=== PATIENT | male | born 1955 | race African-American/Black ===

== ENCOUNTER 2019-01-02 20:59 | Inpatient (IN) | payer MEDICARE ==
[2019-01-02] MEDS ORDERED: Ondansetron ODT 4 MG TAB PO PRN (23:23)
[2019-01-02] MEDS ORDERED: Ondansetron PF 4 MG/2 ML Vial IVP PRN (23:23)
[2019-01-02] MEDS ORDERED: Acetaminophen 325 MG TAB PO PRN (23:23)
[2019-01-03] MEDS: Sodium Chloride 0.9% 1,000 ML IV SCH ×3 (00:38→21:15)
[2019-01-03 00:43] VITALS: BMI 32.8
--- NOTE | 2019-01-03 00:48 | HP ---
PRIMARY CARE PHYSICIAN: Nicanor Garcia MD CODE STATUS: Full code. TIME OF EVALUATION: 2300. CHIEF COMPLAINT: Nausea, vomiting, and diarrhea. HISTORY OF PRESENT ILLNESS: This is a 63-year-old male patient with past medical history of hyperlipidemia, hypertension. He came to the hospital after having severe nausea, vomiting, and diarrhea. Symptoms have been present for the past 4 days and started insidiously and has been getting gradually worse associated with generalized weakness. No clear triggers and only improved with medical treatment given here. REVIEW OF SYSTEMS: CONSTITUTIONAL: The patient had no fever. The patient has no chills. The patient has generalized weakness. RESPIRATORY: No cough, sputum production, or shortness of breath. CARDIOVASCULAR: No chest pain, or palpitation. GASTROINTESTINAL: The patient had nausea, vomiting, diarrhea, abdominal pain. 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 GENITOURINARY: No burning on urination. EXTREMITIES: No leg swelling. All other systems were reviewed and negative except for the findings mentioned above. PAST MEDICAL HISTORY: As mentioned in the HPI. FAMILY HISTORY: Reviewed, noncontributory for current presentation. PAST SURGICAL HISTORY: No surgical history. PSYCHIATRIC HISTORY: No previous psychiatric history. SOCIAL HISTORY: The patient drinks socially rarely. No drug use. The patient smokes 1 pack per day. KNOWN ALLERGIES: No known drug allergies. REPORTED MEDICATIONS: 1. Lovastatin. 2. Amlodipine. PHYSICAL EXAMINATION: VITAL SIGNS: On presentation, blood pressure 109/58 with heart rate 97, respiratory rate was 18, temperature 97.2. Pain was 0/10, oxygen saturation 100% on room air. GENERAL APPEARANCE: The patient is alert, oriented, no acute distress. HEENT: Eyes, normal conjunctivae. Moist oral mucosa. Anicteric. No JVD. RESPIRATORY: Bilateral air entry. No rales. No wheezes. Symmetric expansion. CARDIOVASCULAR: Normal rate. Regular rhythm. No murmurs. No gallop. No edema. ABDOMEN: Soft, normal bowel sounds. MUSCULOSKELETAL: Baseline range of motion and strength. SKIN: Warm, intact. No pallor. No rash. No redness. Capillary refill seems to be intact. NEUROLOGIC: No evidence of any new focal weakness. Cranial nerves seems to be intact. PSYCHIATRIC: The patient is in good mood. No anxiety. Optimal judgment. LABORATORY DATA: Reviewed. White count was 4.7, hemoglobin 15.9, MCV 97, platelet count 311. Chemistry; potassium 4.5, sodium 137, chloride 99, anion gap 21, BUN 74, GFR 64, creatinine 5.64, GFR 12, glucose 101, hemoglobin A1c 4.7, total bilirubin 0.6. LFTs were negative. CK 321. Beta natriuretic peptide was negative. Serum total protein 7.6, albumin 3.6. Urine was done, was negative for infection. ASSESSMENT AND PLAN: The patient will be placed in the hospital with following medical problems: 1. Severe dehydration secondary to acute gastroenteritis that has been present for the past 4 days. We will hydrate aggressively. Blood pressure and heart rates normalized now. 2. Acute kidney injury. The patient has significant increase in BUN and creatinine with a GFR of 12. Creatinine has improved after initial aggressive hydration in the outpatient ER, initially was 6.9, now 5.6. normal. We will continue aggressive hydration. If not improving, we will consider Nephro evaluation. All seems to be prerenal. 3. Mildly elevated CK with no clear etiology. The patient received hydration. We will monitor. 4. Deep venous thrombosis prophylaxis. 5. Acute gastroenteritis of unclear etiology. We will send stool samples. No risk for C. diff on taking antibiotics. If positive, could be a community-acquired C diff. We will follow results. As of now, seems to be a viral infection since there is no evidence of underlying infection at this point. Job ID: [id number] MTDD
[2019-01-03 04:04] LABS: #Basophils 0.1 thou/uL (0.0-0.2); #Lymphocytes 1.7 thou/uL (1.20-3.40); #Monocytes 0.6 thou/uL (0.11-0.59); #Neutrophils 2.5 thou/uL (1.40-6.50); %Basophils 1.6 % (0.0-1.0); %Eosinophils 0.7 % (0.0-10.0); %Lymphocytes 34.7 % (21.0-51.0); %Monocytes 12.4 % (0.0-10.0); %Neutrophils 50.5 % (42.0-75.0); Mean Corpuscular HGB CONC 34.1 g/dL (32.0-36.0); Mean Corpuscular Hemoglobin 35.5 pg (27.0-31.0); Mean Platelet Volume 7.8 fL (7.4-10.4); Platelet Count 233 thou/uL (130-400); RBC Distribution Width 14.2 % (11.5-14.5); Red Blood Cell (RBC) Count 3.95 mill/uL (4.70-6.10); White Blood Cell (WBC) Count 4.9 thou/uL (4.8-10.8)
[2019-01-03 04:28] LABS: Anion Gap 18 mmol/L (10-20); BUN (Urea Nitrogen) 70 mg/dL (8.4-25.7); Calc. Creatinine Clearance 25 mL/min (70-130); Calcium 8.2 mg/dL (7.8-10.44); Carbon Dioxide 19 mmol/L (23-31); Chloride 101 mmol/L (98-107); Estimated GFR-MDRD 17; Glucose 94 mg/dL (80-115); Potassium 3.2 mmol/L (3.5-5.1); Sodium 135 mmol/L (136-145)
[2019-01-03] MEDS: Heparin 5,000 UNITS/ML VIAL SC SCH ×3 (08:15→21:12)
[2019-01-03] MEDS ORDERED: FLU VACC TS2019-20(65YR UP)/PF 180 MCG/0.5 ML SYRINGE IM ONE (09:00)
[2019-01-03] MEDS ORDERED: Enoxaparin Sodium 40 MG/0.4 ML SYRINGE SC SCH (09:00)
--- NOTE | 2019-01-03 12:53 | PDOC.EVN ---
Event Note - Event Note Event Note: Seen and examined. Discussed all laboratory data and improving renal function. Patient breathing well on room air. Patient's diarrhea secondary to Campylobacter infection, he does not recall eating any chicken products that specifically could have caused this. Patient is going to think about his diet over the past week and see if he can narrow down where he received the infection. Patient does state that he was at a wedding over the weekend and he had some brisket, however there is no other friends or family members who have been sick. Nephrology consult pending.
--- NOTE | 2019-01-03 18:22 | CON ---
DATE OF CONSULTATION: CONSULTING PHYSICIAN: Renny Funk MD REQUESTING PHYSICIAN: Josy Bui MD REASON FOR CONSULTATION: Acute kidney injury. IMPRESSION: 1. Acute kidney injury. This is likely prerenal in the context of poor p.o. intake with the increased gastrointestinal loss. However, I cannot completely rule out other potential etiologies that are not very clear at this point. 2. Gastroenteritis. Hopefully, the nausea vomiting has not seemed to do with uremia. 3. Mild hypokalemia in the context of gastrointestinal loss. 4. Metabolic acidosis related to reduced GFR as well as increased bicarb loss through the gastrointestinal tract. PLAN: 1. I do agree with gentle rehydration. 2. Renally dose all medications and avoid potentially nephrotoxic agents. 3. Replete potassium. 4. If no significant renal improvement over the next 24 hours, we will proceed with renal imaging, where of ultrasound as well as all other markers of advanced chronic kidney disease. 5. Further management to be dependent on the clinical course. HISTORY OF PRESENT ILLNESS: History is that of a 63-year-old gentleman who was transferred formal to us from [place] due to evidence of severe acute kidney injury. The patient presented to [facility] and was noted with a creatinine above 6 and for the past 4 days, the patient has been having nausea, vomiting, and diarrhea, has not had any appetite to eat. At this time of history taking, the patient is still struggling with appetite. As a result of these findings, decision has been taken to involve Renal in the management of the skin. The patient denies any frothy urine. Denies hematuria. Denies any new medications. No ingestion of any nonsteroidal anti-inflammatory drugs on chronic basis. PAST MEDICAL HISTORY: Significant for dyslipidemia and hypertension. MEDICATIONS: As documented on [employer]. SOCIAL HISTORY: Significant for tobacco use. No illicit drug use. FAMILY HISTORY: No family history of kidney disease. ALLERGIES: NO KNOWN DRUG ALLERGY. PHYSICAL EXAMINATION: GENERAL: The patient was found not to be in any obvious distress. VITAL SIGNS: Noted with the following vital signs; afebrile, temperature 97.9, pulse 81, respiratory rate of 18, O2 saturation of 94% to 98% with a blood pressure of 113/68 to 147/74. HEENT: Unremarkable. CARDIOVASCULAR SYSTEM: First and second heart sounds were heard. RESPIRATORY SYSTEM: Clear to auscultation. DIGESTIVE SYSTEM: Revealed a benign abdomen. Positive bowel sounds. EXTREMITIES: No peripheral edema. SKIN: No new gross rash. LYMPHATICS: No peripheral lymphadenopathy. SUMMARY: A 63-year-old gentleman, who presented here with nausea, vomiting, diarrhea and noted with the severe acute kidney injury. Thank you for this consultation. We will follow with you. Job ID: [id number]
[2019-01-04] MEDS: Sodium Chloride 0.9% 1,000 ML IV SCH ×3 (04:58→23:01)
[2019-01-04] MEDS: Amlodipine 10 MG TAB PO SCH (08:48)
[2019-01-04] MEDS: Heparin 5,000 UNITS/ML VIAL SC SCH ×3 (08:49→21:06)
[2019-01-04 09:41] LABS: Mean Corpuscular HGB CONC 34.2 g/dL (32.0-36.0); Mean Corpuscular Hemoglobin 35.7 pg (27.0-31.0); Mean Platelet Volume 7.8 fL (7.4-10.4); Platelet Count 244 thou/uL (130-400); Red Blood Cell (RBC) Count 3.64 mill/uL (4.70-6.10); White Blood Cell (WBC) Count 5.2 thou/uL (4.8-10.8)
[2019-01-04 09:45] LABS: #Basophils 0.1 thou/uL (0.0-0.2); #Eosinphils 0.1 thou/uL (0.0-0.7); #Lymphocytes 2.3 thou/uL (1.20-3.40); #Monocytes 0.6 thou/uL (0.11-0.59); #Neutrophils 2.1 thou/uL (1.40-6.50); %Basophils 1.3 % (0.0-1.0); %Eosinophils 1.9 % (0.0-10.0); %Lymphocytes 44.8 % (21.0-51.0); Band 2 % (5-11); Eosinophils 1 % (0-10); Lymphocytes 42 % (21-51); MDiff Complete? YES; Macrocytosis SLIGHT = 6-15 cells (100X) (0-5/hpf); Metamyelocyte 1 % (0-0); Monocytes 8 % (0-10); Neutrophil 43 % (42-75); Platelet Morphology Comment Appears Adequate; Polychromasia SLIGHT = 2-3 cells (100X) (0-2/hpf); Reactive Lymphocytes 3 % (0-10)
[2019-01-04 09:50] LABS: Anion Gap 14 mmol/L (10-20); BUN (Urea Nitrogen) 43 mg/dL (8.4-25.7); Calc. Creatinine Clearance 67 mL/min (70-130); Calcium 8.7 mg/dL (7.8-10.44); Carbon Dioxide 22 mmol/L (23-31); Chloride 107 mmol/L (98-107); Estimated GFR-MDRD 52; Glucose 100 mg/dL (80-115); Potassium 3.5 mmol/L (3.5-5.1); Sodium 139 mmol/L (136-145)
--- NOTE | 2019-01-04 18:18 | PRG ---
DATE OF SERVICE: 01/04/2019 SUBJECTIVE: The patient is seen and examined, seems to be doing much better, noted with the following vital signs. OBJECTIVE: VITAL SIGNS: Afebrile. Temperature 97.6, pulse 76, respiratory rate of 16, O2 saturations of 95%, blood pressure 129/75. HEENT: Unremarkable. CARDIOVASCULAR: First and second heart sounds were heard. RESPIRATORY: Clear to auscultation. DIGESTIVE SYSTEM: Benign abdomen. Positive bowel sounds. EXTREMITIES: No peripheral edema. SKIN: No new gross rash. LYMPHATICS: No peripheral lymphadenopathy. LABORATORY INVESTIGATIONS: Significant for creatinine that has gone down to 1.62, BUN of 43. IMPRESSION: Acute kidney injury in the context of increased GI loss, slight dehydration, seems to have responded very well to IV fluid resuscitation. PLAN: 1. Discontinue IV fluids. 2. Continue other renal supportive measures. 3. Renally dose all medications. 4. Outpatient Nephrology followup as per discharge recommend. Job ID: [id number]
--- NOTE | 2019-01-04 18:29 | PDOC.HOSPP ---
- Subjective Encounter Date: 01/04/19 Encounter Time: 08:20 Subjective: Pt seen for followup re: JOSE DAVID. Feels well, no complaints. - Objective Vital Signs & Weight: Vital Signs (12 hours) Temp Pulse Resp BP BP Pulse Ox 01/04/19 16:00 97.6 F 76 16 129/75 95 01/04/19 11:22 97.7 F 76 16 132/73 95 01/04/19 08:48 76 144/64 H 01/04/19 07:47 97.9 F 76 16 144/64 H 95 Weight Admit Weight 228 lb 8 oz Weight 228 lb 8 oz I&O: 01/03/19 01/04/19 01/05/19 06:59 06:59 06:59 Intake Total 1000 3580 Output Total 350 Balance 1000 3230 Result Diagrams: 01/04/19 09:08 01/04/19 09:08 Additional Labs: Labs and MARs reviewed by me Hospitalist ROS - Review of Systems Cardiovascular: denies: chest pain, palpitations, orthopnea, paroxysmal noc. dyspnea, edema, light headedness Gastrointestinal: denies: nausea, vomiting, abdominal pain, diarrhea, constipation, melena, hematochezia - Medication Medications: Active Medications Generic Name Dose Route Start Last Admin Trade Name Freq PRN Reason Stop Dose Admin Amlodipine Besylate 10 mg 01/04/19 09:00 01/04/19 08:48 Norvasc PO 10 mg DAILY OMKAR Administration Heparin Sodium (Porcine) 5,000 units 01/03/19 09:00 01/04/19 15:07 Heparin SC 5,000 units TID OMKAR Administration Sodium Chloride 1,000 mls @ 100 mls/hr 01/02/19 23:45 01/04/19 15:10 Normal Saline 0.9% IV 1,000 mls .Q10H OMKAR Administration Sodium Chloride 10 ml 01/03/19 09:00 01/04/19 08:54 Flush - Normal Saline IVF Not Given Q12HR OMKAR - Exam General - other findings: Obese Eye: anicteric sclera ENT: moist mucosa Neck: supple, no JVD Heart: RRR Respiratory: CTAB, no rales Gastrointestinal: soft, non-tender Extremities: no clubbing Neurological: no weakness Musculoskeletal: normal strength, no muscle wasting Psychiatric: normal affect, normal behavior Hosp A/P (1) JOSE DAVID (acute kidney injury) Code(s): N17.9 - ACUTE KIDNEY FAILURE, UNSPECIFIED Status: Acute (2) Campylobacter enteritis Code(s): A04.5 - CAMPYLOBACTER ENTERITIS Status: Acute (3) Dyslipidemia Code(s): E78.5 - HYPERLIPIDEMIA, UNSPECIFIED Status: Chronic - Plan out of bed/ambulate Creatinien improved to 1.62 today. Continue IV fluids. Pt denies diarrhea.
[2019-01-04 21:16] VITALS: TEMP 98
[2019-01-05 04:52] LABS: Anion Gap 11 mmol/L (10-20); BUN (Urea Nitrogen) 26 mg/dL (8.4-25.7); Calc. Creatinine Clearance 99 mL/min (70-130); Calcium 8.4 mg/dL (7.8-10.44); Carbon Dioxide 24 mmol/L (23-31); Chloride 107 mmol/L (98-107); Estimated GFR-MDRD 82; Glucose 92 mg/dL (80-115); Potassium 3.3 mmol/L (3.5-5.1); Sodium 139 mmol/L (136-145)
[2019-01-05 05:06] LABS: Eosinophils 3 % (0-10); Hemoglobin 11.9 g/dL (14.0-18.0); Hypochromia SLIGHT = 6-15 cells (100X) (0-5/hpf); Lymphocytes 59 % (21-51); MDiff Complete? YES; Mean Corpuscular HGB CONC 34.2 g/dL (32.0-36.0); Mean Corpuscular Hemoglobin 35.9 pg (27.0-31.0); Mean Platelet Volume 7.8 fL (7.4-10.4); Monocytes 9 % (0-10); Neutrophil 29 % (42-75); Platelet Count 240 thou/uL (130-400); Platelet Morphology Comment Appears Adequate; Red Blood Cell (RBC) Count 3.31 mill/uL (4.70-6.10); White Blood Cell (WBC) Count 5.9 thou/uL (4.8-10.8)
[2019-01-05] MEDS ORDERED: Potassium Chloride 20 MEQ TAB PO SCH (08:00)
[2019-01-05] MEDS: Amlodipine 10 MG TAB PO SCH (08:03)
[2019-01-05] MEDS: Heparin 5,000 UNITS/ML VIAL SC SCH (08:03)
[2019-01-05] MEDS: Sodium Chloride 0.9% 1,000 ML IV SCH (12:12)
[2019-01-05 12:25] VITALS: BP 117/69
[2019-01-05] MEDS ORDERED: Simvastatin 5 MG TAB PO SCH (17:00)
[2019-01-05] MEDS ORDERED: Lovastatin 20 MG TAB PO SCH (17:00)
--- NOTE | 2019-01-05 22:51 | DIS ---
DATE OF ADMISSION: 01/03/2019 DATE OF DISCHARGE: 01/05/2019 PRIMARY CARE PROVIDER: Nicanor Garcia MD DISCHARGE DIAGNOSES: 1. Acute kidney injury. 2. Dehydration. 3. Campylobacter enteritis. 4. Hyponatremia. 5. Hypokalemia. CONDITION OF PATIENT ON THE DAY OF DISCHARGE: Stable. I assessed Mr. Mckeon on the day of discharge. He denies any chest pain or shortness of breath. Vital signs are stable. S1 and S2 are heard, regular. Lungs are clear to auscultation bilaterally. DISCHARGE MEDICATIONS: 1. Amlodipine 10 mg daily. 2. Lovastatin 10 mg in the evening. HOSPITAL COURSE: Mr. Mckeon is a pleasant 63-year-old gentleman, who was admitted to [facility] on January 03, 2019, for acute kidney injury in the context of diarrhea. He also had severe dehydration. He was seen by Nephrology Service. He received intravenous fluids with improvement in his symptoms. His stool was positive for Campylobacter antigen, negative for E coli shiga toxins 1 and 2, and negative for Clostridium difficile. Preliminary stool cultures are growing gram-negative rods. He is advised to follow up with primary care provider for final stool culture report. No E coli 0157 was isolated at 24 hours. Acute kidney injury resolved. Diarrhea also resolved. He did not receive antibiotics for Campylobacter. I had a lengthy discussion with the patient as well as his over the telephone regarding sequelae of Campylobacter infections including symptoms to watch out for in case he develops Guillain-Lawrence syndrome. On the day of discharge, he has sodium 139, potassium 3.3, which is being replaced, creatinine 1.09, white count 5900, hemoglobin 11.9, and platelet count 240,000. CONSULTATIONS DURING THIS HOSPITALIZATION: Nephrology, [place] Alvaro Funk MD Many thanks for allowing me to participate in your patient's care. Please feel free to contact me with any questions or concerns. DISCHARGE DESTINATION: Home. TIME SPENT: Total amount of time spent coordinating this discharge: 32 minutes. Job ID: [id number]
--- NOTE | 2019-01-06 07:08 | PQF ---
DON COHEN DAVID [id number] CLINICAL DOCUMENTATION CLARIFICATION FORM: POST DISCHARGE Addendum to original discharge summary date: ____ Late entry note date: __ DATE:01-06-2019 ATTN: Krishna Springer Please exercise your independent, professional judgment in responding to the clarification form. Clinical indicators are provided on the bottom of this form for your review [ ]Sepsis due to campylobacter infection [ x ]Campylobacter infection [ ] Other diagnosis please specify [ ] Unable to determine In addition, please specify: Present on Admission (POA): [ ] Yes [ ] No [ ] Unable to determine For continuity of documentation, please document condition throughout progress notes and discharge summary. Thank You. CLINICAL INDICATORS ED NOTES 01/03 "patient presents for evaluation of vomiting,diarrhea and poor kidney function" HP 01/03 "patient has generalized weakness" HP 01/03 "severe dehdyration secondary to acute gastroenteritis" Event Note 01/03 "Patient's diarrhea secondary to Campylobacter infection" DS 01/05 "JOSE DAVID in the context of diarrhea" Consult 01/03-Acidosis Vital signs - BP 110/53 DS 01/05 "He did not receive antibiotics for Campylobacter" RISK FACTORS ED NOTES 01/03-63 years old male ED NOTES 01/03-HTN ED NOTES 01/03-Smoker HP 01/03-Dehydration Consult 01/03-Hypokalemia DS 01/05-Campylobacter enteritis TREATMENTS: HP 01/03-aggressive IV hydration HP 01/03-Nephro consult HP 01/03-Stool culture Consult 01/03-Avoid nephrotoxic agents Consult 01/03-Electrolyte replacement (This form is maintained as a part of the permanent medical record) 2014 [email or web address]. All Rights Reserved [email or web address] [not provided] MTDD
--- NOTE | 2019-01-06 18:34 | PQF ---
DON COHEN DAVID [id number] CLINICAL DOCUMENTATION CLARIFICATION FORM: POST DISCHARGE Addendum to original discharge summary date: ____ Late entry note date: __ DATE: 01-06-2019 ATTN:Krishna Springer Please exercise your independent, professional judgment in responding to the clarification form. Clinical indicators are provided on the bottom of this form for your review based on your clinical knowledge can you please clarify the reason for admission being treated for this patient? Please check appropriate box(s): [ ] JOSE DAVID [ x ] Campylobacter enteritis [ ] Other diagnosis please specify: [ ] Unable to determine In addition, please specify: Present on Admission (POA): [ x] Yes [ ] No [ ] Unable to determine For continuity of documentation, please document condition throughout progress notes and discharge summary. Thank You. CLINICAL INDICATORS ED NOTES 01/03 "patient presents for evaluation of vomiting,diarrhea and poor kidney function" HP 01/03 "patient has generalized weakness" HP 01/03 "severe dehdyration secondary to acute gastroenteritis" Event Note 01/03 "Patient's diarrhea secondary to Campylobacter infection" DS 01/05 "JOSE DAVID in the context of diarrhea" Consult 01/03-Acidosis DS 01/05 "He did not receive antibiotics for Campylobacter" RISK FACTORS ED NOTES 01/03-63 years old male ED NOTES 01/03-HTN ED NOTES 01/03-Smoker HP 01/03-Dehydration Consult 01/03-Hypokalemia Consult 01/03-Acidosi TREATMENTS: HP 01/03-aggressive IV hydration HP 01/03-Nephro consult HP 01/03-Stool culture Consult 01/03-Avoid nephrotoxic agents Consult 01/03-Electrolyte replacement (This form is maintained as a part of the permanent medical record) 2014 [email or web address]. All Rights Reserved [email or web address] [not provided] MTDD
== END 2019-01-05 13:05 | disposition home or self-care (01) | DRG 372 ==
LOC: ERS 20:59 → T4-B 01-03 00:27
PROVIDERS: ADMIT Hospitalist; ATTEND Hospitalist
DX: A04.5 Campylobacter enteritis (principal); N17.9 Acute kidney failure, unspecified; E87.2 Acidosis; E87.1 Hypo-osmolality and hyponatremia; Z23 Encounter for immunization; E78.5 Hyperlipidemia, unspecified; E78.00 Pure hypercholesterolemia, unspecified; I10 Essential (primary) hypertension; F17.210 Nicotine dependence, cigarettes, uncomplicated; E86.0 Dehydration; E87.6 Hypokalemia
CPT/HCPCS: 36415; 80048; 83630; 83735; 85025; 87045; 87046; 87077; 87186; 87324; 87427; 87449; 99284; J1644

== ENCOUNTER 2020-04-02 17:21 | Inpatient (IN) | payer MEDICARE ==
[~2020-04-02 17:21] MED LIST: Iopamidol 370 76% 100 ML VIAL ONE
[2020-04-02] MEDS ORDERED: Acetaminophen 325 MG TAB ONE (18:04)
[2020-04-02] MEDS ORDERED: cefTRIAXone\\ROCEPHIN 2 GM VIAL ONE (18:04)
[2020-04-02] MEDS ORDERED: Azithromycin 500 MG VIAL ONE (18:04)
[2020-04-02 18:08] LABS: Mean Corpuscular HGB CONC 33.8 g/dL (32.0-36.0); Mean Corpuscular Hemoglobin 37.5 pg (27.0-31.0); RBC Distribution Width 25.7 % (11.5-14.5); Red Blood Cell (RBC) Count 1.87 mill/uL (4.70-6.10); White Blood Cell (WBC) Count 4.8 thou/uL (4.8-10.8)
[2020-04-02 18:23] LABS: ALT (SGPT) 32 U/L (8-55); AST (SGOT) 149 U/L (5-34); Albumin 4.4 g/dL (3.4-4.8); Alkaline Phosphatase 62 U/L (40-110); Anion Gap 21 mmol/L (10-20); BUN (Urea Nitrogen) 40 mg/dL (8.4-25.7); Bilirubin, Total 1.1 mg/dL (0.2-1.2); Calc. Creatinine Clearance 0 mL/min (70-130); Calcium 8.6 mg/dL (7.8-10.44); Carbon Dioxide 19 mmol/L (23-31); Chloride 107 mmol/L (98-107); Globulin 3.1 g/dL (2.4-3.5); Glucose 110 mg/dL (80-115); Protein, Total 7.5 g/dL (5.8-8.1); Sodium 143 mmol/L (136-145)
[2020-04-02 18:25] LABS: Anisocytosis MODERATE=16-30 cells (100X) (0-5/hpf); Band 13 % (5-11); Basophilic Stippling SLIGHT = 1-2 cells (100X) (None Seen); Lymphocytes 26 % (21-51); MDiff Complete? YES; Macrocytosis SLIGHT = 6-15 cells (100X) (0-5/hpf); Mean Platelet Volume 7.2 fL (7.4-10.4); Monocytes 2 % (0-10); Neutrophil 59 % (42-75); Nucleated RBC 6 % (0); Ovalocytes SLIGHT = 2-5 cells (100X) (0-1/hpf); Platelet Count 59 thou/uL (130-400); Platelet Morphology Comment Appears Decreased; Polychromasia MARKED = >4 cells (100X) (0-2/hpf); Reflex for Review?? NO; Schistocytes MODERATE= 6-15 cells (100X) (0-1/hpf); Target Cells SLIGHT = 2-5 cells (100X) (0-1/hpf); Tear Drops SLIGHT = 2-5 cells (100X) (0-1/hpf)
[2020-04-02 18:29] LABS: Bacteria/HPF None Seen HPF (None Seen); Bilirubin Negative (Negative); Blood, Urine 1+ (Negative); Clarity Turbid (Clear); Glucose, Urine (Dipstick) Normal (Negative); Ketone, Urine Trace mg/dL (Negative); Leukocyte Negative Leu/uL (Negative); Nitrite Negative (Negative); Protein, Urine (Dipstick) 30 mg/dL (Neg-Trace); RBC/HPF 0-3 HPF (0-3); Squamous Epithelial 0-3 HPF (0-3); WBC/HPF 0-3 HPF (0-3)
[2020-04-02 19:42] LABS: SARS-CoV-2 NAA Rapid Test DETECTED (NotDetected)
[2020-04-02 19:54] LABS: Troponin I 27.195 ng/mL (< 0.028)
[2020-04-02] MEDS ORDERED: Aspirin Chewable 81 MG TAB ONE (20:30)
[2020-04-02] MEDS ORDERED: Enoxaparin Sodium 30 MG/0.3 ML SYRINGE ONE (20:30)
[2020-04-02 21:23] LABS: Lactic Acid 1.2 mmol/L (0.5-2.2)
[2020-04-02] MEDS ORDERED: Norepinephrine 8 MG/0.9% NS 250 ML ONE (22:24)
[2020-04-02 22:53] LABS: Hemoglobin 5.1 g/dL (14.0-18.0)
[2020-04-02 23:14] LABS: Anisocytosis MODERATE=16-30 cells (100X) (0-5/hpf); Band 8 % (5-11); Lymphocytes 52 % (21-51); MDiff Complete? YES; Mean Corpuscular HGB CONC 32.7 g/dL (32.0-36.0); Mean Corpuscular Hemoglobin 36.3 pg (27.0-31.0); Mean Platelet Volume 7.4 fL (7.4-10.4); Monocytes 1 % (0-10); Neutrophil 39 % (42-75); Platelet Count 43 thou/uL (130-400); Platelet Morphology Comment Appears Decreased; RBC Distribution Width 26.2 % (11.5-14.5); Red Blood Cell (RBC) Count 1.41 mill/uL (4.70-6.10); Schistocytes SLIGHT = 2-5 cells (100X) (0-1/hpf); Tear Drops SLIGHT = 2-5 cells (100X) (0-1/hpf); White Blood Cell (WBC) Count 4.1 thou/uL (4.8-10.8)
[2020-04-02 23:29] LABS: CKMB 68.2 ng/mL (0-6.6)
[2020-04-02] MEDS ORDERED: Dexamethasone 4 mg/ml Vial SLOW IVP SCH ×2 (23:30)
[2020-04-03] MEDS: Cefepime 2 GM in Sodium Chloride 0.9% 100 ML IVPB SCH ×3 (00:50→19:10)
[2020-04-03] MEDS ORDERED: Cefepime 2 GM VIAL ONE ×2 (00:52→06:31)
[2020-04-03 01:38] LABS: Critical Call Chem Troponin I RESULT DECREASING
[2020-04-03] MEDS ORDERED: Dexamethasone 4 mg/ml Vial ONE (01:49)
[2020-04-03 05:05] LABS: Anion Gap 19 mmol/L (10-20); BUN (Urea Nitrogen) 38 mg/dL (8.4-25.7); Calc. Creatinine Clearance 0 mL/min (70-130); Calcium 7.8 mg/dL (7.8-10.44); Carbon Dioxide 14 mmol/L (23-31); Chloride 113 mmol/L (98-107); Glucose 101 mg/dL (80-115); Sodium 142 mmol/L (136-145)
[2020-04-03 05:56] LABS: Hemoglobin 7.5 g/dL (14.0-18.0); Mean Corpuscular HGB CONC 33.5 g/dL (32.0-36.0); Mean Corpuscular Hemoglobin 36.6 pg (27.0-31.0); Mean Platelet Volume 6.9 fL (7.4-10.4); Platelet Count 61 thou/uL (130-400); RBC Distribution Width 25.3 % (11.5-14.5); Red Blood Cell (RBC) Count 2.04 mill/uL (4.70-6.10); White Blood Cell (WBC) Count 6.1 thou/uL (4.8-10.8)
[2020-04-03 06:00] LABS: Anisocytosis MODERATE=16-30 cells (100X) (0-5/hpf); Band 11 % (5-11); Lymphocytes 21 % (21-51); MDiff Complete? YES; Monocytes 1 % (0-10); Myelocyte 2 % (0-0); Neutrophil 65 % (42-75); Platelet Morphology Comment Appears Decreased; Schistocytes SLIGHT = 2-5 cells (100X) (0-1/hpf); Tear Drops SLIGHT = 2-5 cells (100X) (0-1/hpf)
[2020-04-03] MEDS: Sodium Chloride 0.9% 1,000 ML IV SCH ×3 (07:10→19:09)
[2020-04-03] MEDS: Cholecalciferol (Vitamin D3) 400 UNITS TAB PO SCH (09:00)
[2020-04-03] MEDS ORDERED: Dexamethasone 4 mg/ml Vial SLOW IVP SCH (09:00)
[2020-04-03] MEDS ORDERED: Vancomycin 1 GM in Premix Bag 1 BAG IVPB SCH (09:00)
[2020-04-03] MEDS: Ascorbic Acid 500 mg Chewable Tablet PO SCH (12:00)
[2020-04-03 14:39] LABS: Fibrinogen 368 mg/dL (253-463); INR-International Normal Ratio 1.1; Prothrombin Time 14.6 sec (12.0-14.7)
[2020-04-03 14:40] LABS: PTT 37.6 sec (22.9-36.1)
[2020-04-03 14:54] LABS: D-Dimer Test 9.04 *mcg/mL (0.27-0.43)
[2020-04-03 15:09] LABS: FSP-Qualitative ABNORMAL (Normal); FSP-Semiquantitative >=40 & <80 mcg/mL (Less than 5)
[2020-04-03 15:10] LABS: Platelet Count 61 thou/uL (130-400)
[2020-04-03] MEDS ORDERED: REMDESIVIR (EUA) 200 MG in Sodium Chloride 0.9% 250 ML 210 ML IV SCH (15:15)
[2020-04-03] MEDS ORDERED: cefTRIAXone\\ROCEPHIN 2 GM VIAL ONE (16:13)
[2020-04-03] MEDS: cefTRIAXone\\ROCEPHIN 2 GM in Sodium Chloride 0.9% 100 ML IVPB SCH (16:15)
[2020-04-03] MEDS: Zinc Sulfate 220 MG CAP PO SCH (16:17)
[2020-04-03] MEDS ORDERED: Azithromycin 500 MG in Sodium Chloride 0.9% 250 ML 250 ML IVPB SCH (18:00)
[2020-04-03] MEDS ORDERED: Fentanyl 100 MCG/2 ML VIAL ONE (20:11)
[2020-04-03] MEDS ORDERED: Rocuronium Bromide 10 MG/ML (10ML VIAL) ONE (20:11)
[2020-04-03] MEDS ORDERED: Propofol 1,000 MG/100 ML VIAL IV ONE ×2 (20:16→23:02)
[2020-04-03 21:22] LABS: Actual Bicarbonate (HCO3a) 14.7 mEq/L (22-28); Analyzer IN Cardio ER; Base Excess (BEa) -11.2 mEq/L (-2.0 to +3.0); CO2 Tension 32.7 mmHg (35.0-45.0); Calcium, Ionized (arterial) 1.12 mmol/L (1.12-1.30); Carboxyhemoglobin (COHb) 0.5 gm% (0.0-3.0); Hemoglobin (Hb) 6.8 g/dL (14.0-18.0); O2 Tension (PaO2), arterial 385.1 mmHg (> 80.0); Potassium - ABG Lab 4.25 mmol/L (3.70-5.30); pH, Arterial 7.27 (7.35-7.45)
[2020-04-03 21:29] LABS: ALV-art Gradient 287.025 mmHg (0-20); Puncture Site RBA
[2020-04-03] MEDS ORDERED: fentaNYL Citrate/PF 2,000 MCG in Sodium Chloride 0.9% 60 ML IV SCH (22:15)
[2020-04-04] MEDS ORDERED: Propofol 1,000 MG/100 ML VIAL IV ONE ×4 (01:06→15:53)
[2020-04-04] MEDS: Sodium Chloride 0.9% 1,000 ML IV SCH ×3 (01:43→19:40)
[2020-04-04] MEDS ORDERED: Norepinephrine 4 MG/4 ML VIAL ONE (04:27)
[2020-04-04 07:13] LABS: Actual Bicarbonate (HCO3a) 13.6 mEq/L (22-28); Analyzer IN Cardio ER; Base Excess (BEa) -10.4 mEq/L (-2.0 to +3.0); Calcium, Ionized (arterial) 1.06 mmol/L (1.12-1.30); Carboxyhemoglobin (COHb) 0.1 gm% (0.0-3.0); Hemoglobin (Hb) 7.2 g/dL (14.0-18.0); O2 Tension (PaO2), arterial 216.2 mmHg (> 80.0); Potassium - ABG Lab 4.36 mmol/L (3.70-5.30); pH, Arterial 7.38 (7.35-7.45)
[2020-04-04 07:20] LABS: CO2 Tension 23.6 mmHg (35.0-45.0)
[2020-04-04 07:21] LABS: Puncture Site RRA
[2020-04-04 07:48] LABS: Mean Corpuscular HGB CONC 32.9 g/dL (32.0-36.0); Mean Corpuscular Hemoglobin 36.2 pg (27.0-31.0); Mean Platelet Volume 7.3 fL (7.4-10.4); Platelet Count 57 thou/uL (130-400); RBC Distribution Width 26.3 % (11.5-14.5); Red Blood Cell (RBC) Count 1.92 mill/uL (4.70-6.10); White Blood Cell (WBC) Count 7.2 thou/uL (4.8-10.8)
[2020-04-04 08:16] LABS: ALT (SGPT) 32 U/L (8-55); AST (SGOT) 126 U/L (5-34); Albumin 3.6 g/dL (3.4-4.8); Alkaline Phosphatase 47 U/L (40-110); Anion Gap 19 mmol/L (10-20); BUN (Urea Nitrogen) 44 mg/dL (8.4-25.7); Bilirubin, Total 0.8 mg/dL (0.2-1.2); CRP (Inflammatory) 13.13 mg/dL (= or < 0.5); Calc. Creatinine Clearance 62 mL/min (70-130); Calcium 7.7 mg/dL (7.8-10.44); Carbon Dioxide 14 mmol/L (23-31); Chloride 116 mmol/L (98-107); Globulin 2.9 g/dL (2.4-3.5); Glucose 169 mg/dL (80-115); Potassium 4.8 mmol/L (3.5-5.1); Protein, Total 6.5 g/dL (5.8-8.1); Sodium 144 mmol/L (136-145)
[2020-04-04 08:22] LABS: Anisocytosis MARKED = >30 cells (100X) (0-5/hpf); Band 7 % (5-11); Lymphocytes 20 % (21-51); MDiff Complete? YES; Monocytes 4 % (0-10); Myelocyte 1 % (0-0); Neutrophil 68 % (42-75); Nucleated RBC 10 % (0); Platelet Morphology Comment Appears Decreased; Polychromasia MODERATE = 3-4 cells (100X) (0-2/hpf); Schistocytes MODERATE= 6-15 cells (100X) (0-1/hpf); Tear Drops SLIGHT = 2-5 cells (100X) (0-1/hpf)
[2020-04-04] MEDS: Cyanocobalamin 1000 MCG/ML VIAL IM SCH (09:00)
[2020-04-04] MEDS: Cholecalciferol (Vitamin D3) 400 UNITS TAB PO SCH (15:14)
[2020-04-04] MEDS: Ascorbic Acid 500 mg Chewable Tablet PO SCH (15:15)
[2020-04-04] MEDS: Zinc Sulfate 220 MG CAP PO SCH (15:15)
[2020-04-04] MEDS ORDERED: cefTRIAXone\\ROCEPHIN 2 GM VIAL ONE (15:18)
[2020-04-04] MEDS ORDERED: Dexamethasone 10 MG/ML VIAL ONE (15:18)
[2020-04-04] MEDS: cefTRIAXone\\ROCEPHIN 2 GM in Sodium Chloride 0.9% 100 ML IVPB SCH (15:35)
[2020-04-04] MEDS ORDERED: REMDESIVIR (EUA) 100 MG in Sodium Chloride 0.9% 250 ML 230 ML IV SCH (16:00)
[2020-04-04] MEDS: Norepinephrine 8 MG in Dextrose 5% in Water 242 ML IVPB PRN (19:56)
[2020-04-04] MEDS ORDERED: Morphine 2 MG/ML VIAL SLOW IVP PRN (22:00)
[2020-04-04] MEDS ORDERED: DISCONTINUE PREVIOUS NARCOTIC PAIN MEDICATIONS AND BENZODIAZEPINES FS SCH (22:00)
[2020-04-04] MEDS ORDERED: Fentanyl BOLUS 250 ML IVPB PRN (22:00)
[2020-04-04] MEDS ORDERED: Propofol BOLUS 1,000 MG/100 ML VIAL IV PRN (22:00)
[2020-04-04] MEDS: REMDESIVIR (EUA) 100 MG in Sodium Chloride 0.9% 250 ML 230 ML IV SCH (22:02)
[2020-04-04] MEDS: Propofol 1,000 MG/100 ML VIAL IV PRN (23:45)
[2020-04-05] MEDS: Norepinephrine 8 MG in Dextrose 5% in Water 242 ML IVPB PRN ×3 (00:12→20:57)
[2020-04-05] MEDS: fentaNYL Citrate/PF 2,000 MCG in Sodium Chloride 0.9% 60 ML IV SCH ×2 (00:47→17:03)
[2020-04-05] MEDS: Sodium Chloride 0.9% 1,000 ML IV SCH ×3 (04:27→19:16)
[2020-04-05 05:04] LABS: ALT (SGPT) 30 U/L (8-55); AST (SGOT) 109 U/L (5-34); Albumin 3.2 g/dL (3.4-4.8); Alkaline Phosphatase 45 U/L (40-110); Anion Gap 17 mmol/L (10-20); BUN (Urea Nitrogen) 47 mg/dL (8.4-25.7); Bilirubin, Total 0.7 mg/dL (0.2-1.2); CRP (Inflammatory) 20.66 mg/dL (= or < 0.5); Calc. Creatinine Clearance 59 mL/min (70-130); Calcium 7.7 mg/dL (7.8-10.44); Carbon Dioxide 16 mmol/L (23-31); Chloride 116 mmol/L (98-107); Globulin 2.6 g/dL (2.4-3.5); Glucose 180 mg/dL (80-115); Potassium 5.4 mmol/L (3.5-5.1); Protein, Total 5.8 g/dL (5.8-8.1); Sodium 144 mmol/L (136-145)
[2020-04-05 06:09] LABS: Anisocytosis MODERATE=16-30 cells (100X) (0-5/hpf); Band 12 % (5-11); Hemoglobin 6.3 g/dL (14.0-18.0); Lymphocytes 13 % (21-51); MDiff Complete? YES; Macrocytosis SLIGHT = 6-15 cells (100X) (0-5/hpf); Mean Corpuscular HGB CONC 33.8 g/dL (32.0-36.0); Mean Corpuscular Hemoglobin 37.3 pg (27.0-31.0); Mean Platelet Volume 7.3 fL (7.4-10.4); Monocytes 4 % (0-10); Neutrophil 71 % (42-75); Nucleated RBC 3 % (0); Platelet Count 39 thou/uL (130-400); Platelet Morphology Comment Appears Decreased; Polychromasia SLIGHT = 2-3 cells (100X) (0-2/hpf); RBC Distribution Width 25.8 % (11.5-14.5); White Blood Cell (WBC) Count 4.1 thou/uL (4.8-10.8)
[2020-04-05] MEDS: Cholecalciferol (Vitamin D3) 400 UNITS TAB PO SCH (09:03)
[2020-04-05] MEDS: Cyanocobalamin 1000 MCG/ML VIAL IM SCH (09:03)
[2020-04-05] MEDS: Ascorbic Acid 500 mg Chewable Tablet PO SCH (09:03)
[2020-04-05] MEDS: Zinc Sulfate 220 MG CAP PO SCH (09:03)
[2020-04-05] MEDS: Propofol 1,000 MG/100 ML VIAL IV PRN ×2 (13:48→19:13)
[2020-04-05] MEDS: cefTRIAXone\\ROCEPHIN 2 GM in Sodium Chloride 0.9% 100 ML IVPB SCH (14:52)
[2020-04-05 19:41] LABS: Hemoglobin 8.9 g/dL (14.0-18.0); Mean Corpuscular HGB CONC 33.3 g/dL (32.0-36.0); Mean Corpuscular Hemoglobin 34.9 pg (27.0-31.0); Mean Platelet Volume 12.5 fL (7.4-10.4); Platelet Count 35 thou/uL (130-400); RBC Distribution Width 23.2 % (11.5-14.5); Red Blood Cell (RBC) Count 2.56 mill/uL (4.70-6.10); White Blood Cell (WBC) Count 4.6 thou/uL (4.8-10.8)
[2020-04-05] MEDS: Lorazepam 2 MG/ML VIAL SLOW IVP PRN (20:55)
[2020-04-05] MEDS: REMDESIVIR (EUA) 100 MG in Sodium Chloride 0.9% 250 ML 230 ML IV SCH (20:56)
[2020-04-06] MEDS: Propofol 1,000 MG/100 ML VIAL IV PRN ×5 (01:37→22:45)
[2020-04-06] MEDS: Sodium Chloride 0.9% 1,000 ML IV SCH ×4 (03:00→14:06)
[2020-04-06 05:24] LABS: Platelet Count 28 thou/uL (130-400)
[2020-04-06] MEDS: Norepinephrine 8 MG in Dextrose 5% in Water 242 ML IVPB PRN ×2 (05:33→17:05)
[2020-04-06 05:42] LABS: ALT (SGPT) 25 U/L (8-55); AST (SGOT) 79 U/L (5-34); Albumin 2.9 g/dL (3.4-4.8); Alkaline Phosphatase 48 U/L (40-110); Anion Gap 15 mmol/L (10-20); BUN (Urea Nitrogen) 41 mg/dL (8.4-25.7); Bilirubin, Total 0.7 mg/dL (0.2-1.2); Calc. Creatinine Clearance 84 mL/min (70-130); Calcium 7.8 mg/dL (7.8-10.44); Carbon Dioxide 15 mmol/L (23-31); Chloride 119 mmol/L (98-107); Globulin 2.6 g/dL (2.4-3.5); Glucose 113 mg/dL (80-115); Potassium 4.9 mmol/L (3.5-5.1); Protein, Total 5.5 g/dL (5.8-8.1); Sodium 144 mmol/L (136-145)
[2020-04-06 05:53] LABS: Anisocytosis MODERATE=16-30 cells (100X) (0-5/hpf); Band 4 % (5-11); Hemoglobin 8.2 g/dL (14.0-18.0); Lymphocytes 22 % (21-51); MDiff Complete? YES; Macrocytosis SLIGHT = 6-15 cells (100X) (0-5/hpf); Mean Corpuscular Hemoglobin 35.7 pg (27.0-31.0); Mean Platelet Volume 13.2 fL (7.4-10.4); Monocytes 11 % (0-10); Neutrophil 63 % (42-75); Nucleated RBC 2 % (0); Platelet Morphology Comment Appears Decreased; RBC Distribution Width 22.8 % (11.5-14.5); Tear Drops SLIGHT = 2-5 cells (100X) (0-1/hpf); White Blood Cell (WBC) Count 3.5 thou/uL (4.8-10.8)
[2020-04-06] MEDS: Lorazepam 2 MG/ML VIAL SLOW IVP PRN ×2 (07:38→23:06)
[2020-04-06] MEDS: Zinc Sulfate 220 MG CAP PO SCH (09:54)
[2020-04-06] MEDS: Cholecalciferol (Vitamin D3) 400 UNITS TAB PO SCH (09:54)
[2020-04-06] MEDS: Cyanocobalamin 1000 MCG/ML VIAL IM SCH (09:54)
[2020-04-06] MEDS: Ascorbic Acid 500 mg Chewable Tablet PO SCH (10:48)
[2020-04-06] MEDS: fentaNYL Citrate/PF 2,000 MCG in Sodium Chloride 0.9% 60 ML IV SCH (11:23)
[2020-04-06] MEDS ORDERED: Furosemide 20 MG/2 ML VIAL SLOW IVP SCH (12:15)
[2020-04-06] MEDS: cefTRIAXone\\ROCEPHIN 2 GM in Sodium Chloride 0.9% 100 ML IVPB SCH (16:23)
[2020-04-06] MEDS: Simvastatin 5 MG TAB PO SCH (20:25)
[2020-04-06] MEDS: REMDESIVIR (EUA) 100 MG in Sodium Chloride 0.9% 250 ML 230 ML IV SCH (20:41)
[2020-04-07] MEDS: fentaNYL Citrate/PF 2,000 MCG in Sodium Chloride 0.9% 60 ML IV SCH ×2 (01:59→13:58)
[2020-04-07] MEDS: Sodium Chloride 0.9% 1,000 ML IV SCH ×2 (03:50→17:26)
[2020-04-07] MEDS: Propofol 1,000 MG/100 ML VIAL IV PRN ×3 (06:16→17:31)
[2020-04-07] MEDS: Fondaparinux Sodium 2.5 MG/0.5 ML SYRINGE SC SCH (06:18)
[2020-04-07] MEDS: Furosemide 20 MG/2 ML VIAL SLOW IVP SCH (09:25)
[2020-04-07] MEDS: Pantoprazole 40 MG GRANULES PACKET PER TUBE SCH (09:28)
[2020-04-07] MEDS: Ascorbic Acid 500 mg Chewable Tablet PO SCH (09:28)
[2020-04-07] MEDS: Cholecalciferol (Vitamin D3) 400 UNITS TAB PO SCH (09:28)
[2020-04-07] MEDS: Zinc Sulfate 220 MG CAP PO SCH (09:28)
[2020-04-07] MEDS: Cyanocobalamin 1000 MCG/ML VIAL IM SCH (09:30)
[2020-04-07 09:59] LABS: ALT (SGPT) 36 U/L (8-55); AST (SGOT) 97 U/L (5-34); Albumin 2.9 g/dL (3.4-4.8); Alkaline Phosphatase 66 U/L (40-110); Anion Gap 18 mmol/L (10-20); BUN (Urea Nitrogen) 35 mg/dL (8.4-25.7); Bilirubin, Total 0.7 mg/dL (0.2-1.2); CRP (Inflammatory) 10.61 mg/dL (= or < 0.5); Calc. Creatinine Clearance 112 mL/min (70-130); Calcium 7.8 mg/dL (7.8-10.44); Carbon Dioxide 13 mmol/L (23-31); Chloride 119 mmol/L (98-107); Globulin 2.8 g/dL (2.4-3.5); Glucose 99 mg/dL (80-115); Potassium 4.7 mmol/L (3.5-5.1); Protein, Total 5.7 g/dL (5.8-8.1); Sodium 145 mmol/L (136-145)
[2020-04-07 11:21] LABS: Hemoglobin 9.2 g/dL (14.0-18.0); Mean Corpuscular HGB CONC 34.8 g/dL (32.0-36.0); Mean Corpuscular Hemoglobin 35.9 pg (27.0-31.0); Mean Platelet Volume 16.7 fL (7.4-10.4); Platelet Count 16 thou/uL (130-400); RBC Distribution Width 23.1 % (11.5-14.5); Red Blood Cell (RBC) Count 2.57 mill/uL (4.70-6.10); White Blood Cell (WBC) Count 3.9 thou/uL (4.8-10.8)
[2020-04-07 11:45] LABS: Anisocytosis MARKED = >30 cells (100X) (0-5/hpf); Band 6 % (5-11); Bite Cells SLIGHT = 2-5 cells (100X) (0-1/hpf); Lymphocytes 34 % (21-51); MDiff Complete? YES; Metamyelocyte 2 % (0-0); Monocytes 6 % (0-10); Neutrophil 50 % (42-75); Nucleated RBC 11 % (0); Platelet Morphology Comment Appears Decreased; Polychromasia SLIGHT = 2-3 cells (100X) (0-2/hpf); Reactive Lymphocytes 2 % (0-10); Schistocytes SLIGHT = 2-5 cells (100X) (0-1/hpf); Tear Drops SLIGHT = 2-5 cells (100X) (0-1/hpf)
[2020-04-07] MEDS: Norepinephrine 8 MG in Dextrose 5% in Water 242 ML IVPB PRN (12:15)
[2020-04-07] MEDS: cefTRIAXone\\ROCEPHIN 2 GM in Sodium Chloride 0.9% 100 ML IVPB SCH (17:24)
[2020-04-07] MEDS: REMDESIVIR (EUA) 100 MG in Sodium Chloride 0.9% 250 ML 230 ML IV SCH (20:30)
[2020-04-07] MEDS: Simvastatin 5 MG TAB PO SCH (20:30)
[2020-04-07] MEDS: Lorazepam 2 MG/ML VIAL SLOW IVP PRN (22:07)
[2020-04-08] MEDS: Propofol 1,000 MG/100 ML VIAL IV PRN ×6 (00:16→23:53)
[2020-04-08] MEDS: Lorazepam 2 MG/ML VIAL SLOW IVP PRN (00:16)
[2020-04-08] MEDS: Sodium Chloride 0.9% 1,000 ML IV SCH ×2 (01:45→18:19)
[2020-04-08] MEDS: fentaNYL Citrate/PF 2,000 MCG in Sodium Chloride 0.9% 60 ML IV SCH ×2 (01:45→14:36)
[2020-04-08 04:58] LABS: Mean Platelet Volume 14.2 fL (7.4-10.4); Platelet Count 22 thou/uL (130-400)
[2020-04-08 05:14] LABS: ALT (SGPT) 68 U/L (8-55); AST (SGOT) 123 U/L (5-34); Albumin 2.5 g/dL (3.4-4.8); Alkaline Phosphatase 71 U/L (40-110); Anion Gap 14 mmol/L (10-20); BUN (Urea Nitrogen) 32 mg/dL (8.4-25.7); Bilirubin, Total 0.7 mg/dL (0.2-1.2); CRP (Inflammatory) 6.17 mg/dL (= or < 0.5); Calc. Creatinine Clearance 123 mL/min (70-130); Calcium 7.6 mg/dL (7.8-10.44); Carbon Dioxide 18 mmol/L (23-31); Chloride 118 mmol/L (98-107); Globulin 2.5 g/dL (2.4-3.5); Glucose 105 mg/dL (80-115); Potassium 3.8 mmol/L (3.5-5.1); Sodium 146 mmol/L (136-145)
[2020-04-08 05:23] LABS: Hemoglobin 8.3 g/dL (14.0-18.0); Hypochromia MODERATE=16-30 cells (100X) (0-5/hpf); MDiff Complete? YES; Mean Corpuscular HGB CONC 34.8 g/dL (32.0-36.0); Platelet Morphology Comment Appears Decreased; Red Blood Cell (RBC) Count 2.31 mill/uL (4.70-6.10); White Blood Cell (WBC) Count 3.7 thou/uL (4.8-10.8)
[2020-04-08] MEDS: Fondaparinux Sodium 2.5 MG/0.5 ML SYRINGE SC SCH (06:20)
[2020-04-08] MEDS: Ascorbic Acid 500 mg Chewable Tablet PO SCH (09:02)
[2020-04-08] MEDS: Furosemide 20 MG/2 ML VIAL SLOW IVP SCH (09:02)
[2020-04-08] MEDS: Zinc Sulfate 220 MG CAP PO SCH (09:02)
[2020-04-08] MEDS: Cyanocobalamin 1000 MCG/ML VIAL IM SCH (09:02)
[2020-04-08] MEDS: Cholecalciferol (Vitamin D3) 400 UNITS TAB PO SCH (09:02)
[2020-04-08] MEDS: Pantoprazole 40 MG GRANULES PACKET PER TUBE SCH (09:02)
[2020-04-08] MEDS ORDERED: Docusate Sodium 100 MG/10 ML UDCUP PO PRN (09:47)
[2020-04-08] MEDS: Albumin 25% 25 GM/100 ML BOT IVPB SCH ×3 (10:46→22:24)
[2020-04-08] MEDS: Metoclopramide 10 MG/10 ML UDCUP PO SCH ×3 (10:46→19:28)
[2020-04-08] MEDS: cefTRIAXone\\ROCEPHIN 2 GM in Sodium Chloride 0.9% 100 ML IVPB SCH (15:45)
[2020-04-08] MEDS: Simvastatin 5 MG TAB PO SCH (19:28)
[2020-04-09] MEDS: fentaNYL Citrate/PF 2,000 MCG in Sodium Chloride 0.9% 60 ML IV SCH ×2 (03:31→13:58)
[2020-04-09] MEDS: Propofol 1,000 MG/100 ML VIAL IV PRN ×4 (03:32→21:40)
[2020-04-09] MEDS: Albumin 25% 25 GM/100 ML BOT IVPB SCH (03:32)
[2020-04-09 04:56] LABS: Anion Gap 14 mmol/L (10-20); BUN (Urea Nitrogen) 36 mg/dL (8.4-25.7); Calc. Creatinine Clearance 119 mL/min (70-130); Calcium 8.1 mg/dL (7.8-10.44); Carbon Dioxide 19 mmol/L (23-31); Chloride 118 mmol/L (98-107); Glucose 101 mg/dL (80-115); Potassium 3.7 mmol/L (3.5-5.1); Sodium 147 mmol/L (136-145)
[2020-04-09 04:59] LABS: Eosinophils 1 % (0-10); Hypochromia SLIGHT = 6-15 cells (100X) (0-5/hpf); Lymphocytes 42 % (21-51); MDiff Complete? YES; Mean Corpuscular HGB CONC 34.6 g/dL (32.0-36.0); Mean Corpuscular Hemoglobin 36.8 pg (27.0-31.0); Mean Platelet Volume 15.7 fL (7.4-10.4); Metamyelocyte 3 % (0-0); Monocytes 10 % (0-10); Myelocyte 6 % (0-0); Neutrophil 37 % (42-75); Nucleated RBC 15 % (0); Platelet Count 37 thou/uL (130-400); Platelet Morphology Comment Appears Decreased; RBC Distribution Width 24.9 % (11.5-14.5); RBC Morphology Normal; Reactive Lymphocytes 1 % (0-10); Red Blood Cell (RBC) Count 2.43 mill/uL (4.70-6.10); White Blood Cell (WBC) Count 6.7 thou/uL (4.8-10.8)
[2020-04-09] MEDS: Fondaparinux Sodium 2.5 MG/0.5 ML SYRINGE SC SCH (05:35)
[2020-04-09] MEDS: Sodium Chloride 0.9% 1,000 ML IV SCH (05:35)
[2020-04-09] MEDS: 1/2 NS w/KCL 20 mEq 1,000 ML IV SCH (09:36)
[2020-04-09] MEDS: Cyanocobalamin 1000 MCG/ML VIAL IM SCH (09:36)
[2020-04-09] MEDS: Ascorbic Acid 500 mg Chewable Tablet PO SCH (09:41)
[2020-04-09] MEDS: Cholecalciferol (Vitamin D3) 400 UNITS TAB PO SCH (09:41)
[2020-04-09] MEDS: Pantoprazole 40 MG GRANULES PACKET PER TUBE SCH (09:41)
[2020-04-09] MEDS: Metoclopramide 10 MG/10 ML UDCUP PO SCH ×4 (09:42→19:28)
[2020-04-09] MEDS: Zinc Sulfate 220 MG CAP PO SCH (09:42)
[2020-04-09] MEDS: Furosemide 20 MG/2 ML VIAL SLOW IVP SCH (09:42)
[2020-04-09] MEDS: cefTRIAXone\\ROCEPHIN 2 GM in Sodium Chloride 0.9% 100 ML IVPB SCH (15:41)
[2020-04-09] MEDS: Simvastatin 5 MG TAB PO SCH (19:28)
[2020-04-10] MEDS: Propofol 1,000 MG/100 ML VIAL IV PRN ×4 (00:28→16:20)
[2020-04-10] MEDS ORDERED: Dextrose 50% Abboject 50 ML SYRINGE ONE (00:30)
[2020-04-10] MEDS: 1/2 NS w/KCL 20 mEq 1,000 ML IV SCH (00:37)
[2020-04-10] MEDS: fentaNYL Citrate/PF 2,000 MCG in Sodium Chloride 0.9% 60 ML IV SCH ×2 (03:29→14:57)
[2020-04-10 04:39] LABS: Anion Gap 14 mmol/L (10-20); BUN (Urea Nitrogen) 35 mg/dL (8.4-25.7); Calc. Creatinine Clearance 136 mL/min (70-130); Calcium 7.7 mg/dL (7.8-10.44); Carbon Dioxide 18 mmol/L (23-31); Chloride 116 mmol/L (98-107); Glucose 97 mg/dL (80-115); Potassium 3.6 mmol/L (3.5-5.1); Sodium 144 mmol/L (136-145)
[2020-04-10 05:00] LABS: Eosinophils 1 % (0-10); Hemoglobin 8.6 g/dL (14.0-18.0); Hypochromia SLIGHT = 6-15 cells (100X) (0-5/hpf); Lymphocytes 54 % (21-51); MDiff Complete? YES; Mean Corpuscular HGB CONC 34.2 g/dL (32.0-36.0); Mean Corpuscular Hemoglobin 35.9 pg (27.0-31.0); Mean Platelet Volume 12.3 fL (7.4-10.4); Monocytes 9 % (0-10); Neutrophil 28 % (42-75); Nucleated RBC 42 % (0); Platelet Count 59 thou/uL (130-400); Platelet Morphology Comment Appears Decreased; Polychromasia SLIGHT = 2-3 cells (100X) (0-2/hpf); RBC Distribution Width 26.4 % (11.5-14.5); Reactive Lymphocytes 8 % (0-10); White Blood Cell (WBC) Count 3.8 thou/uL (4.8-10.8)
[2020-04-10] MEDS: Fondaparinux Sodium 2.5 MG/0.5 ML SYRINGE SC SCH (05:30)
[2020-04-10] MEDS: Dextrose 5% in Water 1,000 ML IV SCH ×2 (06:13→19:51)
[2020-04-10] MEDS: Furosemide 20 MG/2 ML VIAL SLOW IVP SCH (08:10)
[2020-04-10] MEDS: Zinc Sulfate 220 MG CAP PO SCH (08:10)
[2020-04-10] MEDS: Metoclopramide 10 MG/10 ML UDCUP PO SCH ×4 (08:10→19:50)
[2020-04-10] MEDS: Pantoprazole 40 MG GRANULES PACKET PER TUBE SCH (08:10)
[2020-04-10] MEDS: Cholecalciferol (Vitamin D3) 400 UNITS TAB PO SCH (08:10)
[2020-04-10] MEDS: Ascorbic Acid 500 mg Chewable Tablet PO SCH (08:10)
[2020-04-10] MEDS: Cyanocobalamin 1000 MCG/ML VIAL IM SCH (08:19)
[2020-04-10] MEDS: Lorazepam 2 MG/ML VIAL SLOW IVP PRN ×4 (09:43→17:30)
[2020-04-10] MEDS ORDERED: Norepinephrine 8 MG/0.9% NS 250 ML IVPB SCH (14:30)
[2020-04-10] MEDS: cefTRIAXone\\ROCEPHIN 2 GM in Sodium Chloride 0.9% 100 ML IVPB SCH (15:07)
[2020-04-10] MEDS: Simvastatin 5 MG TAB PO SCH (19:52)
[2020-04-11] MEDS ORDERED: Fentanyl CADD 100 ML ONE ×2 (02:16→13:40)
[2020-04-11 05:17] LABS: Anion Gap 14 mmol/L (10-20); BUN (Urea Nitrogen) 37 mg/dL (8.4-25.7); Calc. Creatinine Clearance 139 mL/min (70-130); Calcium 7.8 mg/dL (7.8-10.44); Carbon Dioxide 19 mmol/L (23-31); Chloride 112 mmol/L (98-107); Glucose 94 mg/dL (80-115); Sodium 141 mmol/L (136-145)
[2020-04-11 05:19] LABS: Hemoglobin 9.7 g/dL (14.0-18.0); Hypochromia SLIGHT = 6-15 cells (100X) (0-5/hpf); Lymphocytes 38 % (21-51); MDiff Complete? YES; Macrocytosis SLIGHT = 6-15 cells (100X) (0-5/hpf); Mean Corpuscular HGB CONC 32.3 g/dL (32.0-36.0); Mean Corpuscular Hemoglobin 35.5 pg (27.0-31.0); Mean Platelet Volume 12.6 fL (7.4-10.4); Monocytes 10 % (0-10); Neutrophil 52 % (42-75); Nucleated RBC 20 % (0); Platelet Count 83 thou/uL (130-400); Platelet Morphology Comment Appears Decreased; RBC Distribution Width 26.5 % (11.5-14.5); Red Blood Cell (RBC) Count 2.73 mill/uL (4.70-6.10); White Blood Cell (WBC) Count 7.1 thou/uL (4.8-10.8)
[2020-04-11] MEDS: Fondaparinux Sodium 2.5 MG/0.5 ML SYRINGE SC SCH (05:47)
[2020-04-11] MEDS: Propofol 1,000 MG/100 ML VIAL IV PRN ×2 (05:48→17:16)
[2020-04-11] MEDS: Pantoprazole 40 MG GRANULES PACKET PER TUBE SCH (09:37)
[2020-04-11] MEDS: Ascorbic Acid 500 mg Chewable Tablet PO SCH (09:37)
[2020-04-11] MEDS: Furosemide 20 MG/2 ML VIAL SLOW IVP SCH (09:37)
[2020-04-11] MEDS: Zinc Sulfate 220 MG CAP PO SCH (09:37)
[2020-04-11] MEDS: Cholecalciferol (Vitamin D3) 400 UNITS TAB PO SCH (09:38)
[2020-04-11] MEDS: Metoclopramide 10 MG/10 ML UDCUP PO SCH ×4 (09:38→20:07)
[2020-04-11] MEDS: Dextrose 5% in Water 1,000 ML IV SCH ×2 (09:38→20:08)
[2020-04-11] MEDS: Cyanocobalamin 1000 MCG/ML VIAL IM SCH (13:07)
[2020-04-11] MEDS: Lorazepam 2 MG/ML VIAL SLOW IVP PRN ×2 (13:42→18:17)
[2020-04-11] MEDS: cefTRIAXone\\ROCEPHIN 2 GM in Sodium Chloride 0.9% 100 ML IVPB SCH (16:11)
[2020-04-11] MEDS: Simvastatin 5 MG TAB PO SCH (20:07)
[2020-04-12] MEDS ORDERED: Fentanyl CADD 100 ML ONE ×2 (02:50→14:35)
[2020-04-12] MEDS: Lorazepam 2 MG/ML VIAL SLOW IVP PRN ×4 (06:05→21:05)
[2020-04-12] MEDS: Fondaparinux Sodium 2.5 MG/0.5 ML SYRINGE SC SCH (07:29)
[2020-04-12] MEDS: Metoclopramide 10 MG/10 ML UDCUP PO SCH ×4 (08:02→21:19)
[2020-04-12] MEDS: Zinc Sulfate 220 MG CAP PO SCH (08:03)
[2020-04-12] MEDS: Cholecalciferol (Vitamin D3) 400 UNITS TAB PO SCH (08:03)
[2020-04-12] MEDS: Pantoprazole 40 MG GRANULES PACKET PER TUBE SCH (08:03)
[2020-04-12] MEDS: Furosemide 20 MG/2 ML VIAL SLOW IVP SCH (08:03)
[2020-04-12] MEDS: Ascorbic Acid 500 mg Chewable Tablet PO SCH (08:03)
[2020-04-12] MEDS: Dextrose 5% in Water 1,000 ML IV SCH (10:06)
[2020-04-12] MEDS: Propofol 1,000 MG/100 ML VIAL IV PRN (10:43)
[2020-04-12] MEDS: cefTRIAXone\\ROCEPHIN 2 GM in Sodium Chloride 0.9% 100 ML IVPB SCH (16:20)
[2020-04-12] MEDS: Simvastatin 5 MG TAB PO SCH (21:19)
[2020-04-13] MEDS: Dextrose 5% in Water 1,000 ML IV SCH ×2 (01:21→12:17)
[2020-04-13] MEDS: Propofol 1,000 MG/100 ML VIAL IV PRN ×3 (03:02→18:00)
[2020-04-13] MEDS ORDERED: Fentanyl CADD 100 ML ONE (03:08)
[2020-04-13 07:05] LABS: #Eosinphils 0.3 thou/uL (0.0-0.7); #Monocytes 0.9 thou/uL (0.11-0.59); %Basophils 0.3 % (0.0-1.0); %Eosinophils 3.5 % (0.0-10.0); %Lymphocytes 24.8 % (21.0-51.0); %Monocytes 10.6 % (0.0-10.0); %Neutrophils 60.9 % (42.0-75.0); Hemoglobin 9.5 g/dL (14.0-18.0); Mean Corpuscular HGB CONC 31.2 g/dL (32.0-36.0); Mean Corpuscular Hemoglobin 33.9 pg (27.0-31.0); Platelet Count 167 thou/uL (130-400); RBC Distribution Width 22.6 % (11.5-14.5); Red Blood Cell (RBC) Count 2.81 mill/uL (4.70-6.10); White Blood Cell (WBC) Count 8.1 thou/uL (4.8-10.8)
[2020-04-13 07:12] LABS: Anion Gap 12 mmol/L (10-20); BUN (Urea Nitrogen) 25 mg/dL (8.4-25.7); Calc. Creatinine Clearance 165 mL/min (70-130); Calcium 7.7 mg/dL (7.8-10.44); Carbon Dioxide 20 mmol/L (23-31); Chloride 111 mmol/L (98-107); Glucose 94 mg/dL (80-115); Potassium 3.4 mmol/L (3.5-5.1); Sodium 140 mmol/L (136-145)
[2020-04-13 09:10] LABS: Anisocytosis MODERATE=16-30 cells (100X) (0-5/hpf); MDiff Complete? YES; Polychromasia MODERATE = 3-4 cells (100X) (0-2/hpf); Schistocytes SLIGHT = 2-5 cells (100X) (0-1/hpf)
[2020-04-13] MEDS: Metoclopramide 10 MG/10 ML UDCUP PO SCH ×4 (09:26→20:41)
[2020-04-13] MEDS: Fondaparinux Sodium 2.5 MG/0.5 ML SYRINGE SC SCH (09:27)
[2020-04-13] MEDS: Ascorbic Acid 500 mg Chewable Tablet PO SCH (09:27)
[2020-04-13] MEDS: Pantoprazole 40 MG GRANULES PACKET PER TUBE SCH (09:27)
[2020-04-13] MEDS: Zinc Sulfate 220 MG CAP PO SCH (09:27)
[2020-04-13] MEDS: Lorazepam 2 MG/ML VIAL SLOW IVP PRN ×2 (09:27→12:30)
[2020-04-13] MEDS: Cholecalciferol (Vitamin D3) 400 UNITS TAB PO SCH (09:27)
[2020-04-13] MEDS: Furosemide 20 MG/2 ML VIAL SLOW IVP SCH (09:27)
[2020-04-13] MEDS: Fentanyl CADD 100 ML IV SCH (16:40)
[2020-04-13] MEDS: cefTRIAXone\\ROCEPHIN 2 GM in Sodium Chloride 0.9% 100 ML IVPB SCH (17:00)
[2020-04-13] MEDS: Simvastatin 5 MG TAB PO SCH (20:41)
[2020-04-14] MEDS: Lorazepam 2 MG/ML VIAL SLOW IVP PRN ×3 (02:25→23:08)
[2020-04-14] MEDS: Dextrose 5% in Water 1,000 ML IV SCH ×2 (02:27→14:59)
[2020-04-14] MEDS: Propofol 1,000 MG/100 ML VIAL IV PRN ×3 (02:28→20:56)
[2020-04-14 04:01] LABS: Anion Gap 11 mmol/L (10-20); BUN (Urea Nitrogen) 23 mg/dL (8.4-25.7); Calc. Creatinine Clearance 168 mL/min (70-130); Calcium 7.6 mg/dL (7.8-10.44); Carbon Dioxide 24 mmol/L (23-31); Chloride 110 mmol/L (98-107); Glucose 93 mg/dL (80-115); Potassium 3.4 mmol/L (3.5-5.1); Sodium 142 mmol/L (136-145)
[2020-04-14] MEDS ORDERED: Fentanyl CADD 100 ML ONE ×2 (04:02→20:52)
[2020-04-14 04:45] LABS: Anisocytosis MODERATE=16-30 cells (100X) (0-5/hpf); Eosinophils 2 % (0-10); Hemoglobin 8.9 g/dL (14.0-18.0); Lymphocytes 16 % (21-51); MDiff Complete? YES; Mean Corpuscular HGB CONC 31.9 g/dL (32.0-36.0); Mean Platelet Volume 11.3 fL (7.4-10.4); Monocytes 5 % (0-10); Myelocyte 1 % (0-0); Neutrophil 76 % (42-75); Ovalocytes SLIGHT = 2-5 cells (100X) (0-1/hpf); Platelet Count 217 thou/uL (130-400); RBC Distribution Width 24.4 % (11.5-14.5); Red Blood Cell (RBC) Count 2.62 mill/uL (4.70-6.10); White Blood Cell (WBC) Count 10.3 thou/uL (4.8-10.8)
[2020-04-14] MEDS: Fondaparinux Sodium 2.5 MG/0.5 ML SYRINGE SC SCH (05:51)
[2020-04-14] MEDS: Metoclopramide 10 MG/10 ML UDCUP PO SCH ×4 (07:42→20:03)
[2020-04-14] MEDS: Scopolamine 1.5 mg/72 hour Patch TOP SCH (07:42)
[2020-04-14] MEDS: Pantoprazole 40 MG GRANULES PACKET PER TUBE SCH (08:15)
[2020-04-14] MEDS: Zinc Sulfate 220 MG CAP PO SCH (08:15)
[2020-04-14] MEDS: Cholecalciferol (Vitamin D3) 400 UNITS TAB PO SCH (08:15)
[2020-04-14] MEDS: Furosemide 20 MG/2 ML VIAL SLOW IVP SCH (08:15)
[2020-04-14] MEDS: Ascorbic Acid 500 mg Chewable Tablet PO SCH (08:15)
[2020-04-14] MEDS: Polyethylene Glycol 3350 17 GM Packet PER TUBE PRN (10:30)
[2020-04-14] MEDS: cefTRIAXone\\ROCEPHIN 2 GM in Sodium Chloride 0.9% 100 ML IVPB SCH (15:00)
[2020-04-14] MEDS: Simvastatin 5 MG TAB PO SCH (20:03)
[2020-04-14] MEDS ORDERED: Fentanyl BOLUS 250 ML IVPB PRN (22:44)
[2020-04-14] MEDS ORDERED: Morphine 2 MG/ML VIAL SLOW IVP PRN (22:44)
[2020-04-14] MEDS ORDERED: Lorazepam 2 MG/ML VIAL SLOW IVP PRN (22:53)
[2020-04-15 04:29] LABS: Anion Gap 15 mmol/L (10-20); BUN (Urea Nitrogen) 20 mg/dL (8.4-25.7); Calc. Creatinine Clearance 163 mL/min (70-130); Calcium 8.2 mg/dL (7.8-10.44); Carbon Dioxide 23 mmol/L (23-31); Chloride 107 mmol/L (98-107); Glucose 91 mg/dL (80-115); Potassium 3.7 mmol/L (3.5-5.1); Sodium 141 mmol/L (136-145)
[2020-04-15 04:43] LABS: Anisocytosis SLIGHT = 6-15 cells (100X) (0-5/hpf); Band 2 % (5-11); Hemoglobin 10.5 g/dL (14.0-18.0); Large Platelets SLIGHT; Lymphocytes 23 % (21-51); MDiff Complete? YES; Macrocytosis SLIGHT = 6-15 cells (100X) (0-5/hpf); Mean Corpuscular Hemoglobin 34.4 pg (27.0-31.0); Monocytes 9 % (0-10); Neutrophil 65 % (42-75); Platelet Count 278 thou/uL (130-400); Platelet Morphology Comment Appears Adequate; RBC Distribution Width 21.6 % (11.5-14.5); Reactive Lymphocytes 1 % (0-10); Red Blood Cell (RBC) Count 3.06 mill/uL (4.70-6.10); Tear Drops SLIGHT = 2-5 cells (100X) (0-1/hpf); White Blood Cell (WBC) Count 11.1 thou/uL (4.8-10.8)
[2020-04-15] MEDS: Dextrose 5% in Water 1,000 ML IV SCH ×2 (05:18→17:45)
[2020-04-15] MEDS: Propofol 1,000 MG/100 ML VIAL IV PRN ×3 (05:26→17:45)
[2020-04-15] MEDS: Fondaparinux Sodium 2.5 MG/0.5 ML SYRINGE SC SCH (05:43)
[2020-04-15] MEDS: Metoclopramide 10 MG/10 ML UDCUP PO SCH ×4 (07:30→20:46)
[2020-04-15] MEDS: Ascorbic Acid 500 mg Chewable Tablet PO SCH (09:51)
[2020-04-15] MEDS: Zinc Sulfate 220 MG CAP PO SCH (09:52)
[2020-04-15] MEDS: Pantoprazole 40 MG GRANULES PACKET PER TUBE SCH (09:52)
[2020-04-15] MEDS: Cholecalciferol (Vitamin D3) 400 UNITS TAB PO SCH (09:52)
[2020-04-15] MEDS: Furosemide 20 MG/2 ML VIAL SLOW IVP SCH (09:53)
[2020-04-15] MEDS ORDERED: Fentanyl CADD 100 ML ONE (13:41)
[2020-04-15] MEDS: cefTRIAXone\\ROCEPHIN 2 GM in Sodium Chloride 0.9% 100 ML IVPB SCH (14:22)
[2020-04-15] MEDS: Simvastatin 5 MG TAB PO SCH (20:46)
[2020-04-16] MEDS: Propofol 1,000 MG/100 ML VIAL IV PRN ×3 (02:02→23:59)
[2020-04-16] MEDS ORDERED: Fentanyl CADD 100 ML ONE ×2 (04:30→18:48)
[2020-04-16] MEDS: Fentanyl CADD 100 ML IV SCH (04:39)
[2020-04-16 05:28] LABS: Anisocytosis MODERATE=16-30 cells (100X) (0-5/hpf); Eosinophils 1 % (0-10); Hemoglobin 9.7 g/dL (14.0-18.0); Hypochromia SLIGHT = 6-15 cells (100X) (0-5/hpf); Lymphocytes 10 % (21-51); MDiff Complete? YES; Macrocytosis SLIGHT = 6-15 cells (100X) (0-5/hpf); Mean Corpuscular HGB CONC 30.5 g/dL (32.0-36.0); Mean Corpuscular Hemoglobin 32.4 pg (27.0-31.0); Mean Platelet Volume 11.2 fL (7.4-10.4); Monocytes 8 % (0-10); Neutrophil 79 % (42-75); Platelet Count 274 thou/uL (130-400); RBC Distribution Width 23.7 % (11.5-14.5); Reactive Lymphocytes 2 % (0-10); Red Blood Cell (RBC) Count 2.99 mill/uL (4.70-6.10); Tear Drops SLIGHT = 2-5 cells (100X) (0-1/hpf); White Blood Cell (WBC) Count 9.6 thou/uL (4.8-10.8)
[2020-04-16] MEDS: Fondaparinux Sodium 2.5 MG/0.5 ML SYRINGE SC SCH (05:46)
[2020-04-16] MEDS: Metoclopramide 10 MG/10 ML UDCUP PO SCH ×4 (07:30→21:41)
[2020-04-16] MEDS: Dextrose 5% in Water 1,000 ML IV SCH ×2 (07:30→22:43)
[2020-04-16] MEDS: Zinc Sulfate 220 MG CAP PO SCH (08:40)
[2020-04-16] MEDS: Pantoprazole 40 MG GRANULES PACKET PER TUBE SCH (08:40)
[2020-04-16] MEDS: Furosemide 20 MG/2 ML VIAL SLOW IVP SCH (08:40)
[2020-04-16] MEDS: Ascorbic Acid 500 mg Chewable Tablet PO SCH (08:40)
[2020-04-16] MEDS: Cholecalciferol (Vitamin D3) 400 UNITS TAB PO SCH (08:40)
[2020-04-16] MEDS: cefTRIAXone\\ROCEPHIN 2 GM in Sodium Chloride 0.9% 100 ML IVPB SCH (14:32)
[2020-04-16] MEDS: Polyethylene Glycol 3350 17 GM Packet PER TUBE PRN (14:37)
[2020-04-16] MEDS: Simvastatin 5 MG TAB PO SCH (21:41)
[2020-04-16] MEDS: Lorazepam 2 MG/ML VIAL SLOW IVP PRN (22:43)
[2020-04-17] MEDS: Scopolamine 1.5 mg/72 hour Patch TOP SCH
[2020-04-17 04:53] LABS: Anion Gap 13 mmol/L (10-20); BUN (Urea Nitrogen) 24 mg/dL (8.4-25.7); Calc. Creatinine Clearance 163 mL/min (70-130); Calcium 8.1 mg/dL (7.8-10.44); Carbon Dioxide 28 mmol/L (23-31); Chloride 106 mmol/L (98-107); Glucose 102 mg/dL (80-115); Potassium 3.6 mmol/L (3.5-5.1); Sodium 143 mmol/L (136-145)
[2020-04-17] MEDS: Fondaparinux Sodium 2.5 MG/0.5 ML SYRINGE SC SCH (05:35)
[2020-04-17 05:40] LABS: Anisocytosis MODERATE=16-30 cells (100X) (0-5/hpf); Eosinophils 2 % (0-10); Hemoglobin 9.9 g/dL (14.0-18.0); Hypochromia SLIGHT = 6-15 cells (100X) (0-5/hpf); Lymphocytes 21 % (21-51); MDiff Complete? YES; Macrocytosis SLIGHT = 6-15 cells (100X) (0-5/hpf); Mean Corpuscular HGB CONC 31.4 g/dL (32.0-36.0); Mean Corpuscular Hemoglobin 34.5 pg (27.0-31.0); Mean Platelet Volume 11.2 fL (7.4-10.4); Monocytes 7 % (0-10); Neutrophil 70 % (42-75); Platelet Count 275 thou/uL (130-400); RBC Distribution Width 20.6 % (11.5-14.5); Red Blood Cell (RBC) Count 2.86 mill/uL (4.70-6.10); White Blood Cell (WBC) Count 7.6 thou/uL (4.8-10.8)
[2020-04-17] MEDS: Metoclopramide 10 MG/10 ML UDCUP PO SCH ×4 (07:35→21:18)
[2020-04-17] MEDS ORDERED: Fentanyl CADD 100 ML ONE ×2 (07:51→22:32)
[2020-04-17] MEDS: Propofol 1,000 MG/100 ML VIAL IV PRN ×3 (08:11→22:35)
[2020-04-17] MEDS: Zinc Sulfate 220 MG CAP PO SCH (09:59)
[2020-04-17] MEDS: Pantoprazole 40 MG GRANULES PACKET PER TUBE SCH (09:59)
[2020-04-17] MEDS: Ascorbic Acid 500 mg Chewable Tablet PO SCH (09:59)
[2020-04-17] MEDS: Furosemide 20 MG/2 ML VIAL SLOW IVP SCH (09:59)
[2020-04-17] MEDS: Cholecalciferol (Vitamin D3) 400 UNITS TAB PO SCH (09:59)
[2020-04-17] MEDS: Dextrose 5% in Water 1,000 ML IV SCH (12:11)
[2020-04-17] MEDS: cefTRIAXone\\ROCEPHIN 2 GM in Sodium Chloride 0.9% 100 ML IVPB SCH (14:50)
[2020-04-17] MEDS: Simvastatin 5 MG TAB PO SCH (21:16)
[2020-04-17] MEDS: Fentanyl CADD 100 ML IV SCH (22:35)
[2020-04-18] MEDS: Dextrose 5% in Water 1,000 ML IV SCH ×2 (02:22→15:41)
[2020-04-18] MEDS: Propofol 1,000 MG/100 ML VIAL IV PRN ×5 (02:34→22:15)
[2020-04-18 05:25] LABS: Anion Gap 14 mmol/L (10-20); BUN (Urea Nitrogen) 26 mg/dL (8.4-25.7); Calc. Creatinine Clearance 170 mL/min (70-130); Calcium 8.1 mg/dL (7.8-10.44); Carbon Dioxide 23 mmol/L (23-31); Chloride 103 mmol/L (98-107); Glucose 90 mg/dL (80-115); Sodium 136 mmol/L (136-145)
[2020-04-18 07:02] LABS: Anisocytosis MODERATE=16-30 cells (100X) (0-5/hpf); Band 2 % (5-11); Eosinophils 2 % (0-10); Hemoglobin 8.9 g/dL (14.0-18.0); Lymphocytes 18 % (21-51); MDiff Complete? YES; Mean Corpuscular HGB CONC 31.9 g/dL (32.0-36.0); Mean Corpuscular Hemoglobin 33.9 pg (27.0-31.0); Mean Platelet Volume 11.6 fL (7.4-10.4); Neutrophil 78 % (42-75); Platelet Count 242 thou/uL (130-400); RBC Distribution Width 20.4 % (11.5-14.5); Red Blood Cell (RBC) Count 2.62 mill/uL (4.70-6.10); White Blood Cell (WBC) Count 6.6 thou/uL (4.8-10.8)
[2020-04-18] MEDS: Fondaparinux Sodium 2.5 MG/0.5 ML SYRINGE SC SCH (07:48)
[2020-04-18] MEDS: Ascorbic Acid 500 mg Chewable Tablet PO SCH (09:27)
[2020-04-18] MEDS: Metoclopramide 10 MG/10 ML UDCUP PO SCH ×4 (09:27→21:00)
[2020-04-18] MEDS: Zinc Sulfate 220 MG CAP PO SCH (09:28)
[2020-04-18] MEDS: Cholecalciferol (Vitamin D3) 400 UNITS TAB PO SCH (09:28)
[2020-04-18] MEDS: Pantoprazole 40 MG GRANULES PACKET PER TUBE SCH (09:28)
[2020-04-18] MEDS ORDERED: Clopidogrel Bisulfate 75 MG TAB ONE (11:22)
[2020-04-18] MEDS: Cyanocobalamin 1000 MCG/ML VIAL IM SCH (11:27)
[2020-04-18] MEDS ORDERED: Fentanyl CADD 100 ML ONE (13:33)
[2020-04-18] MEDS: cefTRIAXone\\ROCEPHIN 2 GM in Sodium Chloride 0.9% 100 ML IVPB SCH (15:41)
[2020-04-18] MEDS: Simvastatin 5 MG TAB PO SCH (21:00)
[2020-04-19] MEDS ORDERED: Fentanyl CADD 100 ML ONE ×2 (03:13→15:54)
[2020-04-19] MEDS: Propofol 1,000 MG/100 ML VIAL IV PRN ×4 (03:18→21:17)
[2020-04-19] MEDS: Fentanyl CADD 100 ML IV SCH (03:19)
[2020-04-19 05:15] LABS: Anisocytosis MODERATE=16-30 cells (100X) (0-5/hpf); Band 2 % (5-11); Eosinophils 6 % (0-10); Hemoglobin 10.8 g/dL (14.0-18.0); Lymphocytes 21 % (21-51); MDiff Complete? YES; Macrocytosis SLIGHT = 6-15 cells (100X) (0-5/hpf); Mean Corpuscular Hemoglobin 38.8 pg (27.0-31.0); Mean Platelet Volume 10.7 fL (7.4-10.4); Monocytes 4 % (0-10); Neutrophil 67 % (42-75); Platelet Count 228 thou/uL (130-400); RBC Distribution Width 19.5 % (11.5-14.5); Red Blood Cell (RBC) Count 2.78 mill/uL (4.70-6.10); White Blood Cell (WBC) Count 7.7 thou/uL (4.8-10.8)
[2020-04-19] MEDS: Dextrose 5% in Water 1,000 ML IV SCH ×2 (06:41→18:14)
[2020-04-19] MEDS: Ascorbic Acid 500 mg Chewable Tablet PO SCH (09:20)
[2020-04-19] MEDS: Cholecalciferol (Vitamin D3) 400 UNITS TAB PO SCH (09:21)
[2020-04-19] MEDS: Metoclopramide 10 MG/10 ML UDCUP PO SCH ×4 (09:21→21:18)
[2020-04-19] MEDS: Fondaparinux Sodium 2.5 MG/0.5 ML SYRINGE SC SCH (09:21)
[2020-04-19] MEDS: Pantoprazole 40 MG GRANULES PACKET PER TUBE SCH (09:22)
[2020-04-19] MEDS: Zinc Sulfate 220 MG CAP PO SCH (09:23)
[2020-04-19] MEDS: cefTRIAXone\\ROCEPHIN 2 GM in Sodium Chloride 0.9% 100 ML IVPB SCH (16:10)
[2020-04-19 19:02] LABS: Calcium 8.5 mg/dL (7.8-10.44); Chloride 108 mmol/L (98-107); Potassium 5.3 mmol/L (3.5-5.1); Sodium 141 mmol/L (136-145)
[2020-04-19 19:03] LABS: Glucose 122 mg/dL (80-115)
[2020-04-19 19:04] LABS: Anion Gap 17 mmol/L (10-20); Carbon Dioxide 21 mmol/L (23-31)
[2020-04-19 19:07] LABS: BUN (Urea Nitrogen) 23 mg/dL (8.4-25.7)
[2020-04-19 19:14] LABS: Calc. Creatinine Clearance 107 mL/min (70-130)
[2020-04-19] MEDS: Simvastatin 5 MG TAB PO SCH (21:18)
[2020-04-20] MEDS: Scopolamine 1.5 mg/72 hour Patch TOP SCH (01:27)
[2020-04-20] MEDS: Propofol 1,000 MG/100 ML VIAL IV PRN ×6 (02:45→20:33)
[2020-04-20] MEDS: Dextrose 5% in Water 1,000 ML IV SCH ×2 (06:29→16:41)
[2020-04-20] MEDS: Fondaparinux Sodium 2.5 MG/0.5 ML SYRINGE SC SCH (06:31)
[2020-04-20] MEDS ORDERED: Fentanyl CADD 100 ML ONE (07:54)
[2020-04-20] MEDS: Metoclopramide 10 MG/10 ML UDCUP PO SCH ×4 (09:56→20:33)
[2020-04-20] MEDS: Zinc Sulfate 220 MG CAP PO SCH (09:57)
[2020-04-20] MEDS: Cholecalciferol (Vitamin D3) 400 UNITS TAB PO SCH (09:57)
[2020-04-20] MEDS: Pantoprazole 40 MG GRANULES PACKET PER TUBE SCH (09:57)
[2020-04-20] MEDS: Ascorbic Acid 500 mg Chewable Tablet PO SCH (09:57)
[2020-04-20] MEDS: cefTRIAXone\\ROCEPHIN 2 GM in Sodium Chloride 0.9% 100 ML IVPB SCH (14:09)
[2020-04-20 14:53] LABS: Anion Gap 13 mmol/L (10-20); BUN (Urea Nitrogen) 19 mg/dL (8.4-25.7); Calc. Creatinine Clearance 161 mL/min (70-130); Calcium 8.5 mg/dL (7.8-10.44); Carbon Dioxide 26 mmol/L (23-31); Chloride 106 mmol/L (98-107); Glucose 118 mg/dL (80-115); Potassium 4.1 mmol/L (3.5-5.1); Sodium 141 mmol/L (136-145)
[2020-04-20 14:56] LABS: Anisocytosis SLIGHT = 6-15 cells (100X) (0-5/hpf); Band 1 % (5-11); Hemoglobin 11.4 g/dL (14.0-18.0); Lymphocytes 6 % (21-51); MDiff Complete? YES; Macrocytosis SLIGHT = 6-15 cells (100X) (0-5/hpf); Mean Corpuscular HGB CONC 31.2 g/dL (32.0-36.0); Mean Corpuscular Hemoglobin 32.8 pg (27.0-31.0); Mean Platelet Volume 10.1 fL (7.4-10.4); Monocytes 2 % (0-10); Neutrophil 89 % (42-75); Platelet Count 295 thou/uL (130-400); Platelet Morphology Comment Appears Adequate; Polychromasia SLIGHT = 2-3 cells (100X) (0-2/hpf); RBC Distribution Width 19.2 % (11.5-14.5); Reactive Lymphocytes 1 % (0-10); Red Blood Cell (RBC) Count 3.49 mill/uL (4.70-6.10); White Blood Cell (WBC) Count 8.4 thou/uL (4.8-10.8)
[2020-04-20] MEDS: Simvastatin 5 MG TAB PO SCH (20:34)
[2020-04-21] MEDS ORDERED: Fentanyl CADD 100 ML ONE (01:14)
[2020-04-21] MEDS: Propofol 1,000 MG/100 ML VIAL IV PRN ×6 (01:16→22:47)
[2020-04-21] MEDS: Lorazepam 2 MG/ML VIAL SLOW IVP PRN (01:16)
[2020-04-21] MEDS: Fentanyl CADD 100 ML IV SCH (02:54)
[2020-04-21 04:31] LABS: Anion Gap 13 mmol/L (10-20); BUN (Urea Nitrogen) 19 mg/dL (8.4-25.7); Calc. Creatinine Clearance 161 mL/min (70-130); Calcium 8.6 mg/dL (7.8-10.44); Carbon Dioxide 26 mmol/L (23-31); Chloride 104 mmol/L (98-107); Glucose 85 mg/dL (80-115); Sodium 139 mmol/L (136-145)
[2020-04-21 04:49] LABS: Band 3 % (5-11); Hemoglobin 11.3 g/dL (14.0-18.0); Hypochromia SLIGHT = 6-15 cells (100X) (0-5/hpf); Lymphocytes 19 % (21-51); MDiff Complete? YES; Macrocytosis SLIGHT = 6-15 cells (100X) (0-5/hpf); Mean Corpuscular HGB CONC 31.7 g/dL (32.0-36.0); Mean Corpuscular Hemoglobin 33.1 pg (27.0-31.0); Mean Platelet Volume 10.2 fL (7.4-10.4); Monocytes 6 % (0-10); Neutrophil 72 % (42-75); Platelet Count 308 thou/uL (130-400); Platelet Morphology Comment Appears Adequate; RBC Distribution Width 18.4 % (11.5-14.5); Red Blood Cell (RBC) Count 3.42 mill/uL (4.70-6.10); White Blood Cell (WBC) Count 14.6 thou/uL (4.8-10.8)
[2020-04-21] MEDS: Fondaparinux Sodium 2.5 MG/0.5 ML SYRINGE SC SCH (06:32)
[2020-04-21] MEDS: Metoclopramide 10 MG/10 ML UDCUP PO SCH ×4 (07:52→20:22)
[2020-04-21] MEDS: Ascorbic Acid 500 mg Chewable Tablet PO SCH (09:15)
[2020-04-21] MEDS: Pantoprazole 40 MG GRANULES PACKET PER TUBE SCH (09:16)
[2020-04-21] MEDS: Zinc Sulfate 220 MG CAP PO SCH (09:16)
[2020-04-21] MEDS: Cholecalciferol (Vitamin D3) 400 UNITS TAB PO SCH (09:16)
[2020-04-21] MEDS: Dextrose 5% in Water 1,000 ML IV SCH (10:05)
[2020-04-21] MEDS: cefTRIAXone\\ROCEPHIN 2 GM in Sodium Chloride 0.9% 100 ML IVPB SCH (15:09)
[2020-04-21] MEDS: Simvastatin 5 MG TAB PO SCH (20:17)
[2020-04-22] MEDS: Dextrose 5% in Water 1,000 ML IV SCH ×3 (00:50→11:40)
[2020-04-22] MEDS: Propofol 1,000 MG/100 ML VIAL IV PRN ×3 (00:59→23:23)
[2020-04-22] MEDS ORDERED: Fentanyl CADD 100 ML ONE (01:40)
[2020-04-22] MEDS: Fentanyl CADD 100 ML IV SCH (01:44)
[2020-04-22 04:33] LABS: Anion Gap 14 mmol/L (10-20); BUN (Urea Nitrogen) 20 mg/dL (8.4-25.7); Calc. Creatinine Clearance 186 mL/min (70-130); Calcium 8.3 mg/dL (7.8-10.44); Carbon Dioxide 24 mmol/L (23-31); Chloride 106 mmol/L (98-107); Eosinophils 1 % (0-10); Glucose 93 mg/dL (80-115); Hemoglobin 10.7 g/dL (14.0-18.0); Lymphocytes 39 % (21-51); MDiff Complete? YES; Mean Corpuscular HGB CONC 30.9 g/dL (32.0-36.0); Mean Corpuscular Hemoglobin 32.1 pg (27.0-31.0); Mean Platelet Volume 10.2 fL (7.4-10.4); Monocytes 9 % (0-10); Neutrophil 51 % (42-75); Platelet Count 250 thou/uL (130-400); Platelet Morphology Comment Appears Adequate; Potassium 5.4 mmol/L (3.5-5.1); RBC Distribution Width 18.3 % (11.5-14.5); Red Blood Cell (RBC) Count 3.34 mill/uL (4.70-6.10); Sodium 139 mmol/L (136-145); White Blood Cell (WBC) Count 4.7 thou/uL (4.8-10.8)
[2020-04-22] MEDS: Fondaparinux Sodium 2.5 MG/0.5 ML SYRINGE SC SCH (06:22)
[2020-04-22] MEDS: Cholecalciferol (Vitamin D3) 400 UNITS TAB PO SCH (09:41)
[2020-04-22] MEDS: Pantoprazole 40 MG GRANULES PACKET PER TUBE SCH (09:41)
[2020-04-22] MEDS: Zinc Sulfate 220 MG CAP PO SCH (09:41)
[2020-04-22] MEDS: Ascorbic Acid 500 mg Chewable Tablet PO SCH (09:41)
[2020-04-22] MEDS: Metoclopramide 10 MG/10 ML UDCUP PO SCH ×4 (09:41→21:12)
[2020-04-22] MEDS: cefTRIAXone\\ROCEPHIN 2 GM in Sodium Chloride 0.9% 100 ML IVPB SCH (16:27)
[2020-04-22] MEDS: Simvastatin 5 MG TAB PO SCH (21:12)
[2020-04-22] MEDS: Polyethylene Glycol 3350 17 GM Packet PER TUBE PRN (21:12)
[2020-04-22] MEDS: Scopolamine 1.5 mg/72 hour Patch TOP SCH (23:47)
[2020-04-23] MEDS: Propofol 1,000 MG/100 ML VIAL IV PRN ×5 (03:04→21:46)
[2020-04-23] MEDS ORDERED: Fentanyl CADD 100 ML ONE ×2 (03:08→15:54)
[2020-04-23] MEDS: Dextrose 5% in Water 1,000 ML IV SCH ×3 (03:09→21:22)
[2020-04-23] MEDS: Fentanyl CADD 100 ML IV SCH (03:11)
[2020-04-23] MEDS: Fondaparinux Sodium 2.5 MG/0.5 ML SYRINGE SC SCH (06:32)
[2020-04-23] MEDS: Pantoprazole 40 MG GRANULES PACKET PER TUBE SCH (08:21)
[2020-04-23] MEDS: Zinc Sulfate 220 MG CAP PO SCH (08:21)
[2020-04-23] MEDS: Cholecalciferol (Vitamin D3) 400 UNITS TAB PO SCH (08:21)
[2020-04-23] MEDS: Metoclopramide 10 MG/10 ML UDCUP PO SCH ×4 (08:21→21:22)
[2020-04-23] MEDS: Ascorbic Acid 500 mg Chewable Tablet PO SCH (08:21)
[2020-04-23 13:19] LABS: Hemoglobin 10.7 g/dL (14.0-18.0); Mean Corpuscular Hemoglobin 31.9 pg (27.0-31.0); Mean Platelet Volume 10.4 fL (7.4-10.4); Platelet Count 241 thou/uL (130-400); RBC Distribution Width 18.1 % (11.5-14.5); Red Blood Cell (RBC) Count 3.37 mill/uL (4.70-6.10); White Blood Cell (WBC) Count 3.1 thou/uL (4.8-10.8)
[2020-04-23 13:33] LABS: Anion Gap 13 mmol/L (10-20); BUN (Urea Nitrogen) 17 mg/dL (8.4-25.7); Calc. Creatinine Clearance 173 mL/min (70-130); Calcium 8.4 mg/dL (7.8-10.44); Carbon Dioxide 26 mmol/L (23-31); Chloride 104 mmol/L (98-107); Glucose 134 mg/dL (80-115); Potassium 4.1 mmol/L (3.5-5.1); Sodium 139 mmol/L (136-145)
[2020-04-23 13:53] LABS: Eosinophils 1 % (0-10); Lymphocytes 15 % (21-51); Monocytes 3 % (0-10); Neutrophil 79 % (42-75)
[2020-04-23 13:54] LABS: Anisocytosis SLIGHT = 6-15 cells (100X) (0-5/hpf); Ovalocytes SLIGHT = 2-5 cells (100X) (0-1/hpf); Platelet Morphology Comment Appears Adequate; Polychromasia SLIGHT = 2-3 cells (100X) (0-2/hpf)
[2020-04-23 13:55] LABS: MDiff Complete? YES
[2020-04-23] MEDS ORDERED: Fentanyl CADD 100 ML IV SCH (14:30)
[2020-04-23] MEDS: cefTRIAXone\\ROCEPHIN 2 GM in Sodium Chloride 0.9% 100 ML IVPB SCH (15:48)
[2020-04-23] MEDS: Simvastatin 5 MG TAB PO SCH (21:22)
[2020-04-24 05:40] LABS: Eosinophils 6 % (0-10); Hemoglobin 11.2 g/dL (14.0-18.0); Lymphocytes 59 % (21-51); MDiff Complete? YES; Mean Corpuscular HGB CONC 31.5 g/dL (32.0-36.0); Mean Corpuscular Hemoglobin 32.3 pg (27.0-31.0); Mean Platelet Volume 10.9 fL (7.4-10.4); Monocytes 11 % (0-10); Neutrophil 24 % (42-75); Platelet Count 220 thou/uL (130-400); Platelet Morphology Comment Appears Adequate; RBC Distribution Width 18.1 % (11.5-14.5); Red Blood Cell (RBC) Count 3.46 mill/uL (4.70-6.10)
[2020-04-24 06:03] LABS: Anion Gap 13 mmol/L (10-20); BUN (Urea Nitrogen) 17 mg/dL (8.4-25.7); Calc. Creatinine Clearance 178 mL/min (70-130); Carbon Dioxide 28 mmol/L (23-31); Chloride 105 mmol/L (98-107); Glucose 78 mg/dL (80-115); Sodium 142 mmol/L (136-145)
[2020-04-24] MEDS: Propofol 1,000 MG/100 ML VIAL IV PRN (06:04)
[2020-04-24] MEDS: Fondaparinux Sodium 2.5 MG/0.5 ML SYRINGE SC SCH (06:04)
[2020-04-24] MEDS: Cholecalciferol (Vitamin D3) 400 UNITS TAB PO SCH (08:28)
[2020-04-24] MEDS: Pantoprazole 40 MG GRANULES PACKET PER TUBE SCH (08:28)
[2020-04-24] MEDS: Zinc Sulfate 220 MG CAP PO SCH (08:28)
[2020-04-24] MEDS: Ascorbic Acid 500 mg Chewable Tablet PO SCH (08:28)
[2020-04-24] MEDS: Metoclopramide 10 MG/10 ML UDCUP PO SCH ×4 (08:28→19:14)
[2020-04-24] MEDS ORDERED: DC Sedation Protocol FS ONE (09:56)
[2020-04-24] MEDS: cefTRIAXone\\ROCEPHIN 2 GM in Sodium Chloride 0.9% 100 ML IVPB SCH (16:39)
[2020-04-24] MEDS: Dextrose 5% in Water 1,000 ML IV SCH (16:39)
[2020-04-24] MEDS: Simvastatin 5 MG TAB PO SCH (19:14)
[2020-04-24] MEDS: hydrALAZINE 20 MG/ML VIAL SLOW IVP PRN (19:44)
[2020-04-25] MEDS: Labetalol HCl 100 MG/20 ML VIAL SLOW IVP PRN (01:18)
[2020-04-25] MEDS: Dextrose 5% in Water 1,000 ML IV SCH ×2 (01:19→17:01)
[2020-04-25] MEDS: hydrALAZINE 20 MG/ML VIAL SLOW IVP PRN ×2 (04:21→21:14)
[2020-04-25] MEDS: Metoclopramide 10 MG/10 ML UDCUP PO SCH ×4 (06:29→21:00)
[2020-04-25] MEDS: Fondaparinux Sodium 2.5 MG/0.5 ML SYRINGE SC SCH (06:29)
[2020-04-25 07:07] LABS: Anion Gap 14 mmol/L (10-20); BUN (Urea Nitrogen) 12 mg/dL (8.4-25.7); Calc. Creatinine Clearance 157 mL/min (70-130); Carbon Dioxide 26 mmol/L (23-31); Chloride 106 mmol/L (98-107); Glucose 87 mg/dL (80-115); Potassium 3.7 mmol/L (3.5-5.1); Sodium 142 mmol/L (136-145)
[2020-04-25 08:12] LABS: Band 1 % (5-11); Eosinophils 8 % (0-10); Hemoglobin 11.6 g/dL (14.0-18.0); Lymphocytes 62 % (21-51); MDiff Complete? YES; Mean Corpuscular HGB CONC 31.5 g/dL (32.0-36.0); Mean Platelet Volume 9.8 fL (7.4-10.4); Monocytes 18 % (0-10); Neutrophil 5 % (42-75); Platelet Count 198 thou/uL (130-400); Platelet Morphology Comment Appears Adequate; RBC Distribution Width 17.5 % (11.5-14.5); RBC Morphology Normal; Reactive Lymphocytes 5 % (0-10); Red Blood Cell (RBC) Count 3.64 mill/uL (4.70-6.10); White Blood Cell (WBC) Count 3.4 thou/uL (4.8-10.8)
[2020-04-25] MEDS ORDERED: Dexamethasone 4 MG in Sodium Chloride 0.9% 50 ML IVPB SCH (09:00)
[2020-04-25] MEDS: Ascorbic Acid 500 mg Chewable Tablet PO SCH (10:05)
[2020-04-25] MEDS: Cholecalciferol (Vitamin D3) 400 UNITS TAB PO SCH (10:05)
[2020-04-25] MEDS: Pantoprazole 40 MG GRANULES PACKET PER TUBE SCH (10:06)
[2020-04-25] MEDS: Zinc Sulfate 220 MG CAP PO SCH (10:06)
[2020-04-25] MEDS: Cyanocobalamin 1000 MCG/ML VIAL IM SCH (12:02)
[2020-04-25] MEDS: Simvastatin 5 MG TAB PO SCH (21:00)
[2020-04-26] MEDS: Scopolamine 1.5 mg/72 hour Patch TOP SCH (00:23)
[2020-04-26 05:24] LABS: Anion Gap 17 mmol/L (10-20); BUN (Urea Nitrogen) 10 mg/dL (8.4-25.7); Calc. Creatinine Clearance 162 mL/min (70-130); Carbon Dioxide 24 mmol/L (23-31); Chloride 107 mmol/L (98-107); Glucose 94 mg/dL (80-115); Potassium 3.3 mmol/L (3.5-5.1); Sodium 145 mmol/L (136-145)
[2020-04-26 05:26] LABS: Eosinophils 12 % (0-10); Lymphocytes 59 % (21-51); MDiff Complete? YES; Mean Corpuscular HGB CONC 31.9 g/dL (32.0-36.0); Mean Corpuscular Hemoglobin 31.8 pg (27.0-31.0); Mean Corpuscular Volume 99.9 fL (78.0-98.0); Mean Platelet Volume 10.3 fL (7.4-10.4); Monocytes 17 % (0-10); Neutrophil 12 % (42-75); Platelet Count 172 thou/uL (130-400); Platelet Morphology Comment Appears Adequate; RBC Distribution Width 17.9 % (11.5-14.5); Red Blood Cell (RBC) Count 3.46 mill/uL (4.70-6.10); White Blood Cell (WBC) Count 2.6 thou/uL (4.8-10.8)
[2020-04-26] MEDS: Fondaparinux Sodium 2.5 MG/0.5 ML SYRINGE SC SCH (06:01)
[2020-04-26] MEDS: hydrALAZINE 20 MG/ML VIAL SLOW IVP PRN (06:03)
[2020-04-26] MEDS: Dextrose 5% in Water 1,000 ML IV SCH ×2 (08:45→18:53)
[2020-04-26] MEDS: Metoclopramide 10 MG/10 ML UDCUP PO SCH ×4 (08:55→20:51)
[2020-04-26] MEDS: Ascorbic Acid 500 mg Chewable Tablet PO SCH (08:56)
[2020-04-26] MEDS: Zinc Sulfate 220 MG CAP PO SCH (08:56)
[2020-04-26] MEDS: Cholecalciferol (Vitamin D3) 400 UNITS TAB PO SCH (08:56)
[2020-04-26] MEDS: Pantoprazole 40 MG GRANULES PACKET PER TUBE SCH (08:58)
[2020-04-26] MEDS: Dexamethasone 4 mg/ml Vial SLOW IVP SCH (08:59)
[2020-04-26] MEDS: Labetalol HCl 100 MG/20 ML VIAL SLOW IVP PRN (13:51)
[2020-04-26 15:42] VITALS: BMI 30.6
[2020-04-26] MEDS: Simvastatin 5 MG TAB PO SCH (20:54)
[2020-04-27 05:22] LABS: Anion Gap 13 mmol/L (10-20); BUN (Urea Nitrogen) 9 mg/dL (8.4-25.7); Calc. Creatinine Clearance 139 mL/min (70-130); Calcium 8.6 mg/dL (7.8-10.44); Carbon Dioxide 24 mmol/L (23-31); Chloride 106 mmol/L (98-107); Glucose 89 mg/dL (80-115); Potassium 3.2 mmol/L (3.5-5.1); Sodium 140 mmol/L (136-145)
[2020-04-27 05:25] LABS: Mean Corpuscular HGB CONC 31.3 g/dL (32.0-36.0); Mean Corpuscular Hemoglobin 31.1 pg (27.0-31.0); Mean Corpuscular Volume 99.3 fL (78.0-98.0); Mean Platelet Volume 10.4 fL (7.4-10.4); Platelet Count 158 thou/uL (130-400); RBC Distribution Width 17.3 % (11.5-14.5); Red Blood Cell (RBC) Count 3.53 mill/uL (4.70-6.10); White Blood Cell (WBC) Count 2.7 thou/uL (4.8-10.8)
[2020-04-27 05:26] LABS: Eosinophils 12 % (0-10); Hypochromia SLIGHT = 6-15 cells (100X) (0-5/hpf); Lymphocytes 82 % (21-51); MDiff Complete? YES; Monocytes 6 % (0-10); Platelet Morphology Comment Appears Adequate
[2020-04-27] MEDS: Fondaparinux Sodium 2.5 MG/0.5 ML SYRINGE SC SCH (06:15)
[2020-04-27] MEDS: Metoclopramide 10 MG/10 ML UDCUP PO SCH ×2 (09:14→15:05)
[2020-04-27] MEDS: Dexamethasone 4 mg/ml Vial SLOW IVP SCH (09:16)
[2020-04-27] MEDS: hydrALAZINE 20 MG/ML VIAL SLOW IVP PRN ×2 (10:00→17:34)
[2020-04-27] MEDS ORDERED: Potassium Chloride 20 MEQ TAB PO SCH (14:00)
[2020-04-27] MEDS: Ascorbic Acid 500 mg Chewable Tablet PO SCH (15:00)
[2020-04-27] MEDS: Zinc Sulfate 220 MG CAP PO SCH (15:01)
[2020-04-27] MEDS: Cholecalciferol (Vitamin D3) 400 UNITS TAB PO SCH (15:01)
[2020-04-27] MEDS: Pantoprazole 40 MG GRANULES PACKET PER TUBE SCH (15:01)
[2020-04-27 16:41] VITALS: TEMP 99.6
[2020-04-27 17:35] VITALS: BP 175/79
== END 2020-04-27 19:10 | disposition swing bed (61) | DRG 870 ==
LOC: ERS 17:21 → ERHOLD 20:28 → IMCU/EMU 04-04 18:00 → 2SW 04-25 11:45
PROVIDERS: ADMIT Student in an Organized Health Care Education/Training Program; ATTEND Internal Medicine
PROC: 5A1955Z Respiratory Ventilation, Greater than 96 Consecutive Hours (ICD-10-PCS; principal; 2020-04-02)
PROC: 8E0ZXY6 Isolation (ICD-10-PCS; 2020-04-02)
PROC: 30233N1 Transfusion of Nonautologous Red Blood Cells into Peripheral Vein, Percutaneous Approach (ICD-10-PCS; 2020-04-02)
PROC: 06HY33Z Insertion of Infusion Device into Lower Vein, Percutaneous Approach (ICD-10-PCS; 2020-04-02)
PROC: 0BH17EZ Insertion of Endotracheal Airway into Trachea, Via Natural or Artificial Opening (ICD-10-PCS; 2020-04-02)
PROC: 3E033XZ Introduction of Vasopressor into Peripheral Vein, Percutaneous Approach (ICD-10-PCS; 2020-04-02)
PROC: XW033E5 Introduction of Remdesivir Anti-infective into Peripheral Vein, Percutaneous Approach, New Technology Group 5 (ICD-10-PCS; 2020-04-03)
PROC: 0BP1XDZ Removal of Intraluminal Device from Trachea, External Approach (ICD-10-PCS; 2020-04-25)
DX: A41.89 Other specified sepsis (principal); U07.1 COVID-19; R65.21 Severe sepsis with septic shock; J96.01 Acute respiratory failure with hypoxia; J12.82 Pneumonia due to coronavirus disease 2019; I21.4 Non-ST elevation (NSTEMI) myocardial infarction; G92 Toxic encephalopathy; R57.1 Hypovolemic shock; N17.9 Acute kidney failure, unspecified; E87.0 Hyperosmolality and hypernatremia; D61.818 Other pancytopenia; E87.2 Acidosis; G72.81 Critical illness myopathy; E46 Unspecified protein-calorie malnutrition; Z66 Do not resuscitate; D51.0 Vitamin B12 deficiency anemia due to intrinsic factor deficiency; E78.5 Hyperlipidemia, unspecified; E78.00 Pure hypercholesterolemia, unspecified; F17.210 Nicotine dependence, cigarettes, uncomplicated; I12.9 Hypertensive chronic kidney disease with stage 1 through stage 4 chronic kidney disease, or unspecified chronic kidney disease; N18.9 Chronic kidney disease, unspecified; E66.9 Obesity, unspecified; D72.820 Lymphocytosis (symptomatic); E87.6 Hypokalemia; R13.10 Dysphagia, unspecified; Z79.899 Other long term (current) drug therapy; Z78.1 Physical restraint status; Z79.82 Long term (current) use of aspirin; Z68.30 Body mass index [BMI] 30.0-30.9, adult
CPT/HCPCS: 0240U; 31500; 36415; 36416; 36430; 36556; 36600; 51702; 70450; 71045; 71275; 74174; 74230; 80048; 80053; 81003; 82553; 82607; 82728; 82746; 82805; 83605; 83615; 84484; 85007; 85025; 85027; 85046; 85049; 85060; 85300; 85362; 85379; 85384; 85610; 85730; 86140; 86850; 86900; 86901; 87040; 87086; 93005; 94002; 94003; 96361; 96365; 96372; 96374; 96375; 96376; J0360; J0456; J0692; J0696; J1100; J1650; J1652; J1940; J2060; J2704; J3010; J3370; J3420; J3480; J3490; J7030; J7050; J7070; P9016; P9047; Q9967

== ENCOUNTER 2021-10-05 09:50 | Outpatient (CLI) | payer MEDICARE ==
[2021-10-05 12:03] LABS: #Basophils 0.1 10x3/uL (0.0-0.2); #Eosinphils 0.3 10x3/uL (0.0-0.5); #Monocytes 0.7 10x3/uL (0.0-1.1); #Neutrophils 3.7 10x3/uL (1.5-8.4); %Basophils 0.7 % (0.0-2.0); %Eosinophils 4.9 % (0.0-6.0); %Lymphocytes 30.9 % (18.0-47.0); %Monocytes 10.2 % (0.0-10.0); %Neutrophils 52.7 % (40.0-75.0); Mean Corpuscular HGB CONC 32.4 g/dL (32.0-36.0); Mean Corpuscular Hemoglobin 29.1 pg (27.0-33.0); Mean Corpuscular Volume 89.8 fl (81.2-95.1); Mean Platelet Volume 10.8 fl (7.4-10.4); Platelet Count 458 10x3/uL (150-450); RBC Distribution Width 13.8 % (11.5-14.5); Red Blood Cell (RBC) Count 4.12 10x6/uL (4.32-5.72)
== END 2021-10-05 09:51 | disposition home or self-care (01) ==
LOC: LABBT 09:50
PROVIDERS: ATTEND Surgery
DX: Z01.812 Encounter for preprocedural laboratory examination (principal); Z20.822 Contact with and (suspected) exposure to COVID-19
CPT/HCPCS: 85025; 87811

== ENCOUNTER 2021-10-07 17:58 | Inpatient (IN) | payer MEDICARE ==
[2021-10-07] MEDS ORDERED: Acetaminophen 650 MG Suppository PR PRN (19:34)
[2021-10-07] MEDS ORDERED: Ondansetron PF 4 MG/2 ML Vial IVP PRN (19:34)
[2021-10-07] MEDS: Famotidine/PF 20 mg/2ml Vial SLOW IVP SCH (22:33)
[2021-10-08 03:33] LABS: SARS-CoV-2 NAA Rapid Test Not Detected (NotDetected)
[2021-10-08 05:45] LABS: #Eosinphils 0.3 thou/uL (0.0-0.7); #Lymphocytes 0.7 thou/uL (1.20-3.40); #Monocytes 0.2 thou/uL (0.11-0.59); #Neutrophils 9.1 thou/uL (1.40-6.50); %Eosinophils 3.1 % (0.0-10.0); %Lymphocytes 7.1 % (21.0-51.0); %Monocytes 2.2 % (0.0-10.0); %Neutrophils 87.6 % (42.0-75.0); Hemoglobin 11.8 g/dL (14.0-18.0); Mean Corpuscular HGB CONC 31.5 g/dL (32.0-36.0); Mean Corpuscular Hemoglobin 29.8 pg (27.0-31.0); Mean Corpuscular Volume 94.5 fL (78.0-98.0); Mean Platelet Volume 8.3 fL (7.4-10.4); Platelet Count 402 thou/uL (130-400); RBC Distribution Width 12.9 % (11.5-14.5); Red Blood Cell (RBC) Count 3.97 mill/uL (4.70-6.10); White Blood Cell (WBC) Count 10.4 thou/uL (4.8-10.8)
[2021-10-08 06:05] LABS: ALT (SGPT) 35 U/L (8-55); AST (SGOT) 55 U/L (5-34); Albumin 3.5 g/dL (3.4-4.8); Alkaline Phosphatase 410 U/L (40-110); Anion Gap 20 mmol/L (10-20); BUN (Urea Nitrogen) 27 mg/dL (8.4-25.7); Bilirubin, Total 1.6 mg/dL (0.2-1.2); Calc. Creatinine Clearance 71 mL/min (70-130); Calcium 9.4 mg/dL (7.8-10.44); Carbon Dioxide 20 mmol/L (23-31); Chloride 105 mmol/L (98-107); Estimated GFR 72; Globulin 3.6 g/dL (2.4-3.5); Glucose 107 mg/dL (80-115); Potassium 4.6 mmol/L (3.5-5.1); Protein, Total 7.1 g/dL (5.8-8.1); Sodium 140 mmol/L (136-145)
[2021-10-08 07:45] VITALS: BMI 24.3
[2021-10-08] MEDS ORDERED: Morphine 2 MG/ML VIAL SLOW IVP PRN (08:01)
[2021-10-08] MEDS ORDERED: Dextrose 5 %-0.45 % NaCl 1,000 ML IV SCH (08:15)
[2021-10-08] MEDS ORDERED: Lidocaine 1% w/Epinephrine 1:100K 20 ML VIAL ONE (08:58)
[2021-10-08] MEDS ORDERED: Bupivacaine 0.25% HCL 30 ML VIAL ONE (08:58)
[2021-10-08] MEDS: Famotidine/PF 20 mg/2ml Vial SLOW IVP SCH ×2 (08:59→21:09)
[2021-10-08] MEDS ORDERED: Enoxaparin Sodium 40 MG/0.4 ML SYRINGE SC SCH (09:00)
[2021-10-08] MEDS ORDERED: fentaNYL Citrate/PF 100 MCG/2 ML SYRINGE ONE (09:01)
[2021-10-08] MEDS ORDERED: Ketamine 50 MG/ML (10ML VIAL) ONE (09:01)
[2021-10-08] MEDS ORDERED: SUGAMMADEX SODIUM 200 MG/2 ML VIAL ONE (09:01)
[2021-10-08] MEDS ORDERED: cefOXitin 2 GM VIAL ONE (09:45)
[2021-10-08] MEDS ORDERED: Sodium Chloride 0.9% 100 ML ONE (09:45)
[2021-10-08] MEDS ORDERED: Esmolol 100 MG/10 ML VIAL ONE (10:27)
[2021-10-08] MEDS ORDERED: Lidocaine 1% PF 5 ML VIAL ONE (10:27)
[2021-10-08] MEDS ORDERED: Succinylcholine 200 MG/10 ml SYRINGE FS ONE (10:27)
[2021-10-08] MEDS ORDERED: Rocuronium Bromide 10 MG/ML (10ML VIAL) ONE (10:27)
[2021-10-08] MEDS ORDERED: Glycopyrrolate 0.2 MG/ML 5 ML SYRINGE ONE (10:27)
[2021-10-08] MEDS ORDERED: PROPOFOL 200 MG/20 ML VIAL ONE (10:27)
[2021-10-08] MEDS ORDERED: Ondansetron PF 4 MG/2 ML Vial ONE (10:27)
[2021-10-08] MEDS ORDERED: Albumin 5% 500 ML ONE (10:43)
[2021-10-08] MEDS ORDERED: Promethazine HCl 25 MG/ML VIAL IM PRN ×2 (11:13→19:14)
[2021-10-08] MEDS ORDERED: Promethazine HCl 25 MG/ML VIAL IVPB PRN (11:13)
[2021-10-08] MEDS ORDERED: Ondansetron HCl/PF 4 MG/2 ML Vial IVP PRN (11:13)
[2021-10-08] MEDS ORDERED: Fentanyl 100 MCG/2 ML VIAL ONE ×2 (11:54→12:17)
[2021-10-08] MEDS: Aspirin 81 mg Enteric Coated Tablet PO SCH (12:09)
[2021-10-08] MEDS: D5 1/2 NS w/20 mEq KCL 1,000 ML IV SCH ×2 (17:11→21:45)
[2021-10-08] MEDS ORDERED: fentaNYL Citrate/PF 2,000 MCG in Sodium Chloride 0.9% 60 ML IV PRN (19:14)
[2021-10-08] MEDS ORDERED: Zolpidem Tartrate 5 MG TAB PO PRN (19:14)
[2021-10-08] MEDS ORDERED: diphenhydrAMINE 25 MG CAP PO PRN (19:14)
[2021-10-08] MEDS ORDERED: diphenhydrAMINE 50 MG/ML VIAL IM PRN (19:14)
[2021-10-08] MEDS ORDERED: Ondansetron PF 4 MG/2 ML Vial IVP PRN (19:14)
[2021-10-08] MEDS ORDERED: Naloxone HCl 0.4 mg/ml Vial IV PRN (19:14)
[2021-10-08] MEDS ORDERED: Communication Order-Pharmacy FS SCH (19:15)
[2021-10-08] MEDS ORDERED: Simvastatin 20 MG TAB PO SCH (21:00)
[2021-10-08] MEDS: Atorvastatin Calcium 10 MG TAB PO SCH (21:09)
[2021-10-08] MEDS: diphenhydrAMINE 50 MG/ML VIAL IVP PRN (21:09)
[2021-10-08] MEDS: Heparin 5,000 UNITS/ML VIAL SC SCH (22:55)
[2021-10-09] MEDS: D5 1/2 NS w/20 mEq KCL 1,000 ML IV SCH ×4 (02:48→23:00)
[2021-10-09] MEDS: diphenhydrAMINE 50 MG/ML VIAL IVP PRN (02:48)
[2021-10-09 05:30] LABS: #Eosinphils 0.5 thou/uL (0.0-0.7); #Lymphocytes 1.4 thou/uL (1.20-3.40); #Monocytes 0.7 thou/uL (0.11-0.59); #Neutrophils 6.2 thou/uL (1.40-6.50); %Eosinophils 5.9 % (0.0-10.0); %Lymphocytes 15.6 % (21.0-51.0); %Monocytes 7.7 % (0.0-10.0); %Neutrophils 70.8 % (42.0-75.0); Hemoglobin 10.8 g/dL (14.0-18.0); Mean Corpuscular HGB CONC 31.5 g/dL (32.0-36.0); Mean Corpuscular Hemoglobin 29.6 pg (27.0-31.0); Mean Corpuscular Volume 93.9 fL (78.0-98.0); Mean Platelet Volume 7.8 fL (7.4-10.4); Platelet Count 321 thou/uL (130-400); RBC Distribution Width 12.8 % (11.5-14.5); Red Blood Cell (RBC) Count 3.66 mill/uL (4.70-6.10); White Blood Cell (WBC) Count 8.7 thou/uL (4.8-10.8)
[2021-10-09 05:56] LABS: ALT (SGPT) 29 U/L (8-55); AST (SGOT) 49 U/L (5-34); Albumin 3.4 g/dL (3.4-4.8); Alkaline Phosphatase 309 U/L (40-110); Anion Gap 15 mmol/L (10-20); BUN (Urea Nitrogen) 25 mg/dL (8.4-25.7); Bilirubin, Total 2.1 mg/dL (0.2-1.2); Calc. Creatinine Clearance 91 mL/min (70-130); Calcium 8.8 mg/dL (7.8-10.44); Carbon Dioxide 23 mmol/L (23-31); Chloride 106 mmol/L (98-107); Estimated GFR 96; Glucose 115 mg/dL (80-115); Magnesium 1.8 mg/dL (1.6-2.6); Protein, Total 6.4 g/dL (5.8-8.1); Sodium 140 mmol/L (136-145)
[2021-10-09] MEDS: Famotidine/PF 20 mg/2ml Vial SLOW IVP SCH ×2 (09:58→20:59)
[2021-10-09] MEDS: Aspirin 81 mg Enteric Coated Tablet PO SCH (09:58)
[2021-10-09] MEDS: Heparin 5,000 UNITS/ML VIAL SC SCH ×3 (10:13→20:59)
[2021-10-09] MEDS: Atorvastatin Calcium 10 MG TAB PO SCH (20:59)
[2021-10-10 05:52] LABS: #Lymphocytes 1.6 thou/uL (1.20-3.40); #Monocytes 0.8 thou/uL (0.11-0.59); #Neutrophils 4.8 thou/uL (1.40-6.50); %Basophils 0.2 % (0.0-1.0); %Eosinophils 11.8 % (0.0-10.0); %Lymphocytes 19.7 % (21.0-51.0); %Monocytes 9.3 % (0.0-10.0); %Neutrophils 58.9 % (42.0-75.0); Hemoglobin 10.2 g/dL (14.0-18.0); Mean Corpuscular HGB CONC 31.7 g/dL (32.0-36.0); Mean Corpuscular Hemoglobin 30.1 pg (27.0-31.0); Mean Corpuscular Volume 94.8 fL (78.0-98.0); Mean Platelet Volume 7.8 fL (7.4-10.4); Platelet Count 278 thou/uL (130-400); RBC Distribution Width 12.7 % (11.5-14.5); Red Blood Cell (RBC) Count 3.38 mill/uL (4.70-6.10); White Blood Cell (WBC) Count 8.1 thou/uL (4.8-10.8)
[2021-10-10 06:03] LABS: ALT (SGPT) 29 U/L (8-55); AST (SGOT) 50 U/L (5-34); Alkaline Phosphatase 278 U/L (40-110); Anion Gap 15 mmol/L (10-20); BUN (Urea Nitrogen) 18 mg/dL (8.4-25.7); Bilirubin, Total 1.7 mg/dL (0.2-1.2); Calc. Creatinine Clearance 105 mL/min (70-130); Calcium 8.6 mg/dL (7.8-10.44); Carbon Dioxide 23 mmol/L (23-31); Chloride 105 mmol/L (98-107); Estimated GFR 100; Glucose 108 mg/dL (80-115); Magnesium 1.9 mg/dL (1.6-2.6); Potassium 4.8 mmol/L (3.5-5.1); Sodium 138 mmol/L (136-145)
[2021-10-10] MEDS: Famotidine/PF 20 mg/2ml Vial SLOW IVP SCH ×2 (09:22→19:46)
[2021-10-10] MEDS: D5 1/2 NS w/20 mEq KCL 1,000 ML IV SCH (09:22)
[2021-10-10] MEDS: Aspirin 81 mg Enteric Coated Tablet PO SCH (09:23)
[2021-10-10] MEDS: Heparin 5,000 UNITS/ML VIAL SC SCH ×3 (09:23→19:46)
[2021-10-10] MEDS: Atorvastatin Calcium 10 MG TAB PO SCH (19:46)
[2021-10-11] MEDS: D5 1/2 NS w/20 mEq KCL 1,000 ML IV SCH ×2 (01:47→11:28)
[2021-10-11] MEDS: Aspirin 81 mg Enteric Coated Tablet PO SCH (10:11)
[2021-10-11] MEDS: Famotidine/PF 20 mg/2ml Vial SLOW IVP SCH ×2 (10:11→20:42)
[2021-10-11] MEDS: Heparin 5,000 UNITS/ML VIAL SC SCH ×3 (10:11→21:29)
[2021-10-11] MEDS ORDERED: Fentanyl 100 MCG/2 ML VIAL SLOW IVP PRN (11:24)
[2021-10-11] MEDS: Atorvastatin Calcium 10 MG TAB PO SCH (20:42)
[2021-10-11] MEDS: HYDROcodone/Acetaminophen 7.5/325 mg Tablet PO PRN (23:48)
[2021-10-12] MEDS: Aspirin 81 mg Enteric Coated Tablet PO SCH (09:40)
[2021-10-12] MEDS: Famotidine/PF 20 mg/2ml Vial SLOW IVP SCH (09:42)
[2021-10-12] MEDS: Heparin 5,000 UNITS/ML VIAL SC SCH ×2 (09:42→15:41)
[2021-10-12] MEDS: HYDROcodone/Acetaminophen 7.5/325 mg Tablet PO PRN (14:27)
[2021-10-12 16:11] VITALS: BP 154/75; TEMP 98
== END 2021-10-12 16:53 | disposition home health service (06) | DRG 330 ==
LOC: SJX 17:58 → SJJU 18:00
PROVIDERS: ADMIT Surgery; ATTEND Internal Medicine
PROC: 0D9670Z Drainage of Stomach with Drainage Device, Via Natural or Artificial Opening (ICD-10-PCS; 2021-10-07)
PROC: 0D1B0Z4 Bypass Ileum to Cutaneous, Open Approach (ICD-10-PCS; principal; 2021-10-08)
PROC: 0JH60WZ Insertion of Totally Implantable Vascular Access Device into Chest Subcutaneous Tissue and Fascia, Open Approach (ICD-10-PCS; 2021-10-08)
PROC: 02HV33Z Insertion of Infusion Device into Superior Vena Cava, Percutaneous Approach (ICD-10-PCS; 2021-10-08)
PROC: B5181ZA Fluoroscopy of Superior Vena Cava using Low Osmolar Contrast, Guidance (ICD-10-PCS; 2021-10-08)
DX: C18.3 Malignant neoplasm of hepatic flexure (principal); C78.7 Secondary malignant neoplasm of liver and intrahepatic bile duct; C78.89 Secondary malignant neoplasm of other digestive organs; Z66 Do not resuscitate; Z20.822 Contact with and (suspected) exposure to COVID-19; E78.5 Hyperlipidemia, unspecified; I10 Essential (primary) hypertension; R74.01 Elevation of levels of liver transaminase levels; Z28.21 Immunization not carried out because of patient refusal; Z79.899 Other long term (current) drug therapy; Z79.82 Long term (current) use of aspirin; Z82.49 Family history of ischemic heart disease and other diseases of the circulatory system; Z80.3 Family history of malignant neoplasm of breast
CPT/HCPCS: 36415; 36416; 71045; 80053; 83735; 85025; 87811; 93005; 93010; 94760; 97139; C1788; J0694; J1200; J1642; J1644; J2270; J2405; J2704; J2710; J3010; J3480; J3490; J7042; P9045; S0020; S0028; U0002

== ENCOUNTER 2021-11-15 17:40 | Emergency (ER) | payer MEDICARE ==
[2021-11-15 18:40] LABS: #Lymphocytes 0.9 thou/uL (1.20-3.40); #Monocytes 0.2 thou/uL (0.11-0.59); #Neutrophils 8.2 thou/uL (1.40-6.50); %Basophils 0.2 % (0.0-1.0); %Eosinophils 0.4 % (0.0-10.0); %Lymphocytes 9.7 % (21.0-51.0); %Monocytes 1.9 % (0.0-10.0); %Neutrophils 87.7 % (42.0-75.0); Hemoglobin 12.6 g/dL (14.0-18.0); Mean Corpuscular HGB CONC 30.9 g/dL (32.0-36.0); Mean Corpuscular Hemoglobin 29.8 pg (27.0-31.0); Mean Corpuscular Volume 96.5 fL (78.0-98.0); Mean Platelet Volume 8.7 fL (7.4-10.4); Platelet Count 267 thou/uL (130-400); RBC Distribution Width 16.8 % (11.5-14.5); Red Blood Cell (RBC) Count 4.22 mill/uL (4.70-6.10); White Blood Cell (WBC) Count 9.3 thou/uL (4.8-10.8)
[2021-11-15 18:55] LABS: ALT (SGPT) 70 U/L (8-55); AST (SGOT) 148 U/L (5-34); Alkaline Phosphatase 1865 U/L (40-110); Anion Gap 27 mmol/L (10-20); BUN (Urea Nitrogen) 79 mg/dL (8.4-25.7); Bilirubin, Total 5.7 mg/dL (0.2-1.2); CK (CPK) 129 U/L (30-200); Calc. Creatinine Clearance 0 mL/min (70-130); Calcium 9.1 mg/dL (7.8-10.44); Carbon Dioxide 13 mmol/L (23-31); Chloride 106 mmol/L (98-107); Estimated GFR 43; Globulin 4.2 g/dL (2.4-3.5); Glucose 104 mg/dL (80-115); Lipase 69 U/L (8-78); Potassium 5.4 mmol/L (3.5-5.1); Protein, Total 7.2 g/dL (5.8-8.1); Sodium 141 mmol/L (136-145)
[2021-11-15 19:16] LABS: CKMB 1.4 ng/mL (0-6.6)
== END 2021-11-15 20:15 | disposition home or self-care (01) ==
LOC: ERS 17:40
DX: E86.0 Dehydration (principal); C18.9 Malignant neoplasm of colon, unspecified; I51.7 Cardiomegaly; C78.7 Secondary malignant neoplasm of liver and intrahepatic bile duct; I10 Essential (primary) hypertension; E78.00 Pure hypercholesterolemia, unspecified; C18.4 Malignant neoplasm of transverse colon; F17.210 Nicotine dependence, cigarettes, uncomplicated; R53.1 Weakness
CPT/HCPCS: 36415; 71045; 80053; 82550; 82553; 83690; 83880; 84484; 85025; 93005; 96360